=== PATIENT | female | born 1990 | race Caucasian/White ===

== ENCOUNTER 2016-04-22 14:29 | Emergency (ER) | payer MEDICAID | END 2016-04-22 17:50 | disposition home or self-care (01) | DX: N93.9 Abnormal uterine and vaginal bleeding, unspecified (principal); R42 Dizziness and giddiness ==

== ENCOUNTER 2016-04-23 12:05 | Emergency (ER) | payer MEDICAID | END 2016-04-23 15:57 | disposition home or self-care (01) | DX: N93.9 Abnormal uterine and vaginal bleeding, unspecified (principal); Z79.3 Long term (current) use of hormonal contraceptives ==

== ENCOUNTER 2016-04-30 13:50 | Outpatient (CLI) | payer MEDICAID | END 2016-04-30 13:51 | disposition home or self-care (01) | DX: M53.3 Sacrococcygeal disorders, not elsewhere classified (principal) ==

== ENCOUNTER 2016-06-02 14:49 | Emergency (ER) | payer MEDICAID ==
[2016-06-02] MEDS ORDERED: IBUPROFEN 400 MG TABLET PO STA (15:01)
[2016-06-02] MEDS ORDERED: ACETAMINOPHEN 325 MG TABLET PO STA (15:01)
[2016-06-02] MEDS ORDERED: ACETAMINOPHEN 325 MG TABLET PO ONE ×2 (15:04→15:06)
[2016-06-02] MEDS ORDERED: IBUPROFEN 400 MG TABLET PO ONE (15:04)
== END 2016-06-02 15:49 | disposition home or self-care (01) ==
DX: J02.9 Acute pharyngitis, unspecified (principal); R03.0 Elevated blood-pressure reading, without diagnosis of hypertension; M19.90 Unspecified osteoarthritis, unspecified site
CPT/HCPCS: 87070; 87430; 99283; A9270

== ENCOUNTER 2016-08-12 02:09 | Emergency (ER) | payer MEDICAID | END 2016-08-12 14:00 | disposition home or self-care (01) | DX: Z63.0 Problems in relationship with spouse or partner (principal); E78.00 Pure hypercholesterolemia, unspecified ==

== ENCOUNTER 2016-09-29 19:59 | Emergency (ER) | payer MEDICAID ==
[2016-09-29 20:07] VITALS: BP 131/81
[2016-09-29] MEDS ORDERED: HYDROcod/ACET 5/325 Prepack 6 PO STA (20:28)
[2016-09-29] MEDS ORDERED: CLINDAMYCIN 150 MG CAPSULE PO STA (20:28)
[2016-09-29] MEDS ORDERED: CLINDAMYCIN 150 MG CAPSULE PO ONE (20:30)
[2016-09-29] MEDS ORDERED: HYDROcod/ACET 5/325 Prepack 6 PO ONE (20:31)
--- NOTE | 2016-09-29 20:32 | ED Physician Documentation ---
History of Present Illness - Stated complaint Stated Complaint: COMER/JAW PX - Chief complaint Chief Complaint: General - History obtained from History obtained from: Patient, Family - History of Present Illness Timing: Other (One week of increasing dental pain and right-sided facial pain as well as bilateral ear pain. 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: None : None HEENT: None Psych: None Musculoskeletal: Osteoarthritis Derm: None - Past Surgical History Past Surgical History: No - Present Medications Home Medications: Ambulatory Orders Medication Instructions Recorded Confirmed Control Pills 12/10/14 12/10/14 Benzonatate [Tessalon] 100 mg PO TID PRN #20 capsule 12/04/15 Ibuprofen [Motrin] 400 mg PO Q6H PRN #20 tablet 12/04/15 Norgestrel-Ethinyl Estradiol 1 each PO TID #1 pkt 04/23/16 [Norg-Ethin Estr 0.5-0.05 mg Tb] Clindamycin [Cleocin] 300 mg PO Q6H 10 Days 09/29/16 HYDROcod/ACETAM 5/325 [[place] 5/325] 1 - 2 ea PO Q6H PRN #15 tablet 09/29/16 - Allergies Allergies/Adverse Reactions: Allergies Allergy/AdvReac Type Severity Reaction Status Date / Time Penicillins AdvReac Intermediate Hives Verified 09/29/16 20:07 Dairy Allergy Unknown Uncoded 12/04/15 12:52 - Social History Does the pt smoke?: No Smoking Status: Never smoker Does the pt drink ETOH?: No Does the pt have substance abuse?: No - Immunizations Immunizations are current?: No Immunizations: No immun - POLST Patient has POLST: No PD ED PE NORMAL - Vitals Vital signs reviewed: Yes - General General: Alert and oriented X 3, No acute distress - HEENT HEENT: PERRL, EOMI, Other (Left ear appears normal. The right TM appears to have a chronic appearing perforation with otitis media that is active. Behind the last molar on the right jaw there is a tender area without swelling, trismus , facial swelling.). No: Ears normal - Neck Neck: Supple, no meningeal sign, No bony TTP - Neuro Neuro: Alert and oriented X 3, Normal speech - Psych Psych: Normal mood, Normal affect Results - Vitals Vitals: Vital Signs - 24 hr 09/29/16 20:03 Temperature 36.9 C Heart Rate 79 Respiratory 16 Rate Blood Pressure 131/81 H O2 Saturation 100 Oxygen O2 Source Room air PD MEDICAL DECISION MAKING - ED course ED course: The [employer] prescription monitoring program was queried with regard to this patient. No concerning findings were found. Departure - Departure Disposition: Home, Self Care Clinical Impression: Pain, dental Otitis media, chronic with perforation Qualifiers: Laterality: right Qualified Code(s): H66.91 - Otitis media, unspecified, right ear Condition: Good Record reviewed to determine appropriate education?: Yes Instructions: ED Tooth Pain, ED Rupture Eardrum Infec Prescriptions: Clindamycin [Cleocin] 300 mg PO Q6H 10 Days HYDROcod/ACETAM 5/325 [[place] 5/325] 1 - 2 ea PO Q6H PRN #15 tablet PRN Reason: Pain Comments: It is very important that you follow up with a dentist. When it comes to dental problems like yours the emergency department can only offer you a short-term solution to your long-term problem. A couple of options for low-cost dental care include: [facility] in [place] call [phone] for an appointment Or [facility] in [place], call [phone] for an appointment Regarding the right TM perforation you should also follow up with an ear nose and throat physician, the closest to you is in [place], call [phone] to schedule an appointment.
== END 2016-09-29 20:35 | disposition home or self-care (01) ==
LOC: ED 19:59
DX: K08.89 Other specified disorders of teeth and supporting structures (principal); H66.91 Otitis media, unspecified, right ear; H72.91 Unspecified perforation of tympanic membrane, right ear; E78.00 Pure hypercholesterolemia, unspecified; M19.90 Unspecified osteoarthritis, unspecified site
CPT/HCPCS: 99283; A9270

== ENCOUNTER 2016-10-28 21:36 | Emergency (ER) | payer MEDICAID ==
[2016-10-28 21:53] LABS: BILIRUBIN,URINE NEGATIVE (NEGATIVE)
[2016-10-28 21:57] LABS: HCG UR QUAL NEGATIVE; UA w/ MICROSCOPIC CHARGE YES
[2016-10-28 22:21] LABS: UR CULTURE IF IND NOT INDICATED
[2016-10-28] MEDS ORDERED: IBUPROFEN 800 MG TABLET PO STA (22:25)
[2016-10-28] MEDS ORDERED: CYCLOBENZAPRINE 10 MG TABLET PO STA (22:25)
--- NOTE | 2016-10-28 22:31 | ED Physician Documentation ---
History of Present Illness - Stated complaint Stated Complaint: HIP/BACK PAIN - Chief complaint Chief Complaint: Trauma Ch/Bk - History obtained from History obtained from: Patient, Family - Additonal information Additional information: Patient is a 26-year-old female who presents with a complaint of low back pain and strain. She says she fell on Thursday and from that time to the present she has been sore in the lower back sacral area. She is walking without any difficulty the pain radiates bilaterally into both hips. She has no weakness in the legs and no perineal anesthesia. She denies any fever or chills she denies any other injury there is no nausea vomiting constipation, or diarrhea. Review of systems: For pertinent positive and negatives in the review of systems please see history of present illness. Otherwise all other systems have been reviewed and are negative. Dragon disclaimer: Parts of this medical record were created using voice recognition technology. Because of the inherent limitations of this system occasional same sounding word substitutions do occur and persist despite proofreading. Please read the document for context. Review of Systems GI: reports: Abdominal Pain. 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: None : None HEENT: None Psych: None Musculoskeletal: Osteoarthritis Derm: None - Past Surgical History Past Surgical History: No - Present Medications Home Medications: Ambulatory Orders Medication Instructions Recorded Confirmed Control Pills 12/10/14 12/10/14 Benzonatate [Tessalon] 100 mg PO TID PRN #20 capsule 12/04/15 Ibuprofen [Motrin] 400 mg PO Q6H PRN #20 tablet 12/04/15 Norgestrel-Ethinyl Estradiol 1 each PO TID #1 pkt 04/23/16 [Norg-Ethin Estr 0.5-0.05 mg Tb] Clindamycin [Cleocin] 300 mg PO Q6H 10 Days 09/29/16 HYDROcod/ACETAM 5/325 [[place] 5/325] 1 - 2 ea PO Q6H PRN #15 tablet 09/29/16 Cyclobenzaprine [Flexeril] 10 mg PO TID PRN #14 tablet 10/28/16 Diclofenac Sodium 50 mg PO BID PRN #14 tablet. 10/28/16 - Allergies Allergies/Adverse Reactions: Allergies Allergy/AdvReac Type Severity Reaction Status Date / Time Penicillins AdvReac Intermediate Hives Verified 10/28/16 21:39 Dairy Allergy Unknown Uncoded 10/28/16 21:39 - Social History Does the pt smoke?: No Smoking Status: Never smoker Does the pt drink ETOH?: No Does the pt have substance abuse?: No - Immunizations Immunizations are current?: No Immunizations: No immun - POLST Patient has POLST: No PD ED PE NORMAL - General General: Alert and oriented X 3, No acute distress, Well developed/nourished - HEENT HEENT: Atraumatic - Neck Neck: Supple, no meningeal sign, No bony TTP - Back Back: No spinal TTP, Other - Derm Derm: Normal color - Neuro Neuro: No motor deficit, No sensory deficit Results - Vitals Vitals: Vital Signs - 24 hr 10/28/16 21:39 Temperature 36.8 C Heart Rate 99 Respiratory 16 Rate Blood Pressure 115/74 O2 Saturation 100 Oxygen O2 Source Room air - Labs Labs: Laboratory Tests 10/28/16 21:47 Urine Color LT. YELLOW Urine Clarity HAZY Urine pH 6.0 Ur Specific Pauline <=1.005 Urine Protein NEGATIVE Urine Glucose (UA) NEGATIVE Urine Ketones NEGATIVE Urine Occult Blood SMALL H Urine Nitrite NEGATIVE Urine Bilirubin NEGATIVE Urine Urobilinogen 0.2 (NORMAL) Ur Leukocyte Esterase MODERATE H Urine RBC 0-5 Urine WBC 4-5 Ur Squamous Epith Cells MOD Squamous H Urine Bacteria Few Ur Microscopic Review INDICATED Urine Culture Comments NOT INDICATED Urine HCG, Qual NEGATIVE PD MEDICAL DECISION MAKING - ED course ED course: Patient is a young healthy female with a history of falling a few days ago with a fairly benign exam and benign history. I am a little concerned about her visit frequency in regards to pain related complaints. The patient will be given a nonsteroidal anti-inflammatory, Flexeril and I will have her follow-up with her primary care physician. Disposition: To home Clinical impression: 1. Lumbar strain Departure - Departure Disposition: 01 Home, Self Care Clinical Impression: Strain of lumbar paraspinous muscle Qualifiers: Encounter type: initial encounter Qualified Code(s): S39.012A - Strain of muscle, fascia and tendon of lower back, initial encounter Condition: Good Instructions: ED Sprain Strain Lumbar Follow-Up: Ct Rocha ARNP [Primary Care Provider] - Prescriptions: Diclofenac Sodium 50 mg PO BID PRN #14 tablet. PRN Reason: Pain Cyclobenzaprine [Flexeril] 10 mg PO TID PRN #14 tablet PRN Reason: Spasms
[2016-10-28] MEDS ORDERED: CYCLOBENZAPRINE 10 MG TABLET PO ONE (22:32)
[2016-10-28] MEDS ORDERED: IBUPROFEN 800 MG TABLET PO ONE (22:33)
[2016-10-28 22:48] VITALS: BP 101/73
== END 2016-10-28 22:44 | disposition home or self-care (01) ==
LOC: ED 21:36
DX: S39.012A Strain of muscle, fascia and tendon of lower back, initial encounter (principal); W18.30XA Fall on same level, unspecified, initial encounter; Y93.E1 Activity, personal bathing and showering
CPT/HCPCS: 81001; 81025; 99283; A9270; 81003; 87086

== ENCOUNTER 2016-12-24 17:44 | Emergency (ER) | payer MEDICAID ==
--- NOTE | 2016-12-24 20:06 | ED Physician Documentation ---
History of Present Illness - Stated complaint Stated Complaint: ABSCESS IN MOUTH - Chief complaint Chief Complaint: Heent - Additonal information Additional information: hx from pt 26 y/o f to ER for right lower dental pain which is recurrent, bad again now rad to ear her dentist is in [place] and she has not seen him/her for this denies preg Review of Systems Constitutional: denies: Fever, Chills Ears: reports: Ear pain Throat: reports: Dental pain / toothache : denies: Now EGA PD PAST MEDICAL HISTORY - Past Medical History Past Medical History: No Cardiovascular: High cholesterol Respiratory: None Neuro: None Endocrine/Autoimmune: None GI: None 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 : None HEENT: None Psych: None Musculoskeletal: Osteoarthritis Derm: None - Past Surgical History Past Surgical History: No - Present Medications Home Medications: Ambulatory Orders Medication Instructions Recorded Confirmed Clindamycin [Cleocin] 300 mg PO Q6H 7 Days 12/24/16 - Allergies Allergies/Adverse Reactions: Allergies Allergy/AdvReac Type Severity Reaction Status Date / Time Penicillins AdvReac Intermediate Hives Verified 12/24/16 19:39 Dairy Allergy Unknown Uncoded 12/24/16 19:39 - Social History Does the pt smoke?: No Smoking Status: Never smoker Does the pt drink ETOH?: No Does the pt have substance abuse?: No - Immunizations Immunizations are current?: No Immunizations: No immun - POLST Patient has POLST: No PD ED PE NORMAL - Vitals Vital signs reviewed: Yes - General General: Alert and oriented X 3 - HEENT HEENT: PERRL, Ears normal, Moist mucous membranes, Other (teeth seem in goot condition, no trismus, some tenderness without flutuance to gum behind last molar, no erupting tooth seen) - Neck Neck: Supple, no meningeal sign - Cardiac Cardiac: RRR - Respiratory Respiratory: Clear bilaterally Results - Vitals Vitals: Vital Signs - 24 hr 12/24/16 18:05 Temperature 36.4 C L Heart Rate 96 Respiratory 16 Rate Blood Pressure 133/84 H O2 Saturation 100 Oxygen O2 Source Room air PD MEDICAL DECISION MAKING - ED course ED course: dental pain with tenderness behind left molar, pt states this a recurrent abscess, do not see superficial abscess to drain, to states usually clear for a whole with ab so will rx same, but emphasized to pt that she really needs to see a dentist Departure - Departure Disposition: Home, Self Care Clinical Impression: Pain, dental Condition: Good Instructions: ED Tooth Pain Follow-Up: Ct Rocha ARNP [Primary Care Provider] - Prescriptions: Clindamycin [Cleocin] 300 mg PO Q6H 7 Days Comments: Taking antibiotic over and over again is not a good idea - you really need to go see your dentist even if it is in [place] Tylenol and motrin for the pain Please follow up with your PMD to get your blood pressure rechecked
[2016-12-24 20:19] VITALS: BP 107/74
== END 2016-12-24 20:19 | disposition home or self-care (01) ==
LOC: ED 17:44
DX: K04.7 Periapical abscess without sinus (principal); K08.89 Other specified disorders of teeth and supporting structures
CPT/HCPCS: 99283

== ENCOUNTER 2017-04-30 08:00 | Outpatient (CLI) | payer MEDICAID | END 2017-04-30 23:59 | disposition home or self-care (01) | LOC: LAB.R 08:00 | PROVIDERS: ATTEND Obstetrics & Gynecology | DX: Z11.3 Encounter for screening for infections with a predominantly sexual mode of transmission (principal) | CPT/HCPCS: 87491; 87591 ==

== ENCOUNTER 2017-05-20 10:20 | Outpatient (CLI) | payer MEDICAID | END 2017-05-20 10:21 | disposition home or self-care (01) | LOC: LAB.F 10:20 | PROVIDERS: ATTEND Obstetrics & Gynecology | DX: Z36.9 Encounter for antenatal screening, unspecified (principal); D69.3 Immune thrombocytopenic purpura ==

== ENCOUNTER 2017-05-21 13:16 | Outpatient (CLI) | payer MEDICAID ==
[2017-05-21 13:48] LABS: BASOPHILS # (AUTO) 0.1 10^3/uL (0.0-0.1); BASOPHILS % (AUTO) 0.7 %; EOSINOPHILS # (AUTO) 0.1 10^3/uL (0.0-0.7); EOSINOPHILS % (AUTO) 1.3 %; LYMPHOCYTES # (AUTO) 1.7 10^3/uL (1.5-3.5); LYMPHOCYTES % (AUTO) 18.3 %; MEAN CORPUSCULAR HEMOGLOBIN 32.7 pg (27.0-31.0); MEAN CORPUSCULAR HGB CONC 35.9 g/dL (32.0-36.0); MEAN CORPUSCULAR VOLUME 91.1 fL (81.0-99.0); MEAN PLATELET VOLUME 7.8 fL (7.9-10.8); MONOCYTES # (AUTO) 0.7 10^3/uL (0.0-1.0); MONOCYTES % (AUTO) 7.4 %; NEUTROPHILS # (AUTO) 6.9 10^3/uL (1.5-6.6); NEUTROPHILS % (AUTO) 72.3 %; PLT - PLATELET COUNT 228 10^3/uL (130-450); RED BLOOD COUNT 3.38 10^6/uL (4.20-5.40); WHITE BLOOD COUNT 9.5 x10^3/uL (4.8-10.8)
[2017-05-21 13:49] LABS: BILIRUBIN,URINE NEGATIVE (NEGATIVE); GLUCOSE, URINE (UA) NEGATIVE (NEGATIVE); KETONES,URINE (UA) NEGATIVE (NEGATIVE); LEUKOCYTE ESTERASE, URINE NEGATIVE (NEGATIVE); NITRITE,URINE NEGATIVE (NEGATIVE); OCCULT BLOOD,URINE NEGATIVE (NEGATIVE); PROTEIN,URINE NEGATIVE (NEGATIVE); UROBILINOGEN,URINE 0.2 (NORMAL) E.U./dL (NORMAL)
[2017-05-21 13:50] LABS: CLARITY,URINE CLEAR (CLEAR)
[2017-05-21 14:02] LABS: BACTERIA,URINE Rare /HPF (None Seen); RBC,URINE None Seen /HPF (0-5); SQUAMOUS EPITHELIAL CELL,UR FEW Squamous (<= Few)
[2017-05-22 08:47] LABS: HEPATITIS B SURFACE ANTIGEN NON-REACTIVE (NON-REACTIVE)
[2017-05-22 14:06] LABS: HIV AG/AB 4TH GEN NON-REACTIVE (NON-REACTIVE)
== END 2017-05-21 13:17 | disposition home or self-care (01) ==
LOC: LAB 13:16
PROVIDERS: ATTEND Obstetrics & Gynecology
DX: Z36.9 Encounter for antenatal screening, unspecified (principal); D69.3 Immune thrombocytopenic purpura
CPT/HCPCS: 36415; 81001; 81599; 82105; 82677; 84702; 85025; 86336; 86592; 86762; 86850; 86900; 86901; 87340; 87389

== ENCOUNTER 2017-05-29 12:27 | Outpatient (CLI) | payer MEDICAID ==
--- NOTE | 2017-06-01 10:43 | Ultrasound Report ---
OB ULTRASOUND: 05/29/2017 CLINICAL INDICATION: anatomy. TECHNIQUE: Real-time scanning was performed with traveling sales representative static images obtained. LAST MENSTRUAL PERIOD 01/11/2017 CLINICAL AGE 19 weeks 5 days US AGE 19 weeks 6 days EFW HADLOCK 313 grams EFW% HADLOCK 50% HEART RATE 142 bpm EDC 10/18/2017 US EDC 10/17/2017 BPD HADLOCK 20 weeks 1 day; Mean mm 47 HC HADLOCK 19 weeks 5 days; Mean mm 171 AC HADLOCK 20 weeks days; Mean mm 152 FL HADLOCK 19 weeks 1 day; Mean mm 30 PRESENTATION cephalic PLACENTAL LOCATION posterior CERVICAL LENGTH TA 3.0 cm AMNIOTIC FLUID subjectively normal. FINDINGS There is a single viable intrauterine gestation, in cephalic presentation. heart rate is 142 BPM. The placenta is posterior, without evidence of previa. Amniotic fluid volume is subjectively normal. By size, the fetus measures 19 weeks 6 days (19 weeks 5 days per order). The following anatomic structures were visualized and appear normal: The intracranial contents, including the ventricles and posterior fossa; the lips and orbits; the spine; the heart, including 4 chamber view and outflow tracts, and diaphragm; the abdominal contents, including the stomach, the bilateral kidneys, and urinary bladder, as well as a normal 3-vessel cord insertion; 4 limbs. No free fluid or adnexal lesion is appreciated. IMPRESSION: SINGLE VIABLE INTRAUTERINE GESTATION, WITH SIZE IN KEEPING WITH GIVEN DATING. NORMAL ANATOMIC SURVEY. TD: 05/29/2017 16:13 [facility]
== END 2017-05-29 12:28 | disposition home or self-care (01) ==
LOC: DI 12:27
PROVIDERS: ATTEND Obstetrics & Gynecology
DX: Z36.9 Encounter for antenatal screening, unspecified (principal)
CPT/HCPCS: 76811

== ENCOUNTER 2017-07-24 12:06 | Outpatient (CLI) | payer MEDICAID ==
[2017-07-24 13:38] LABS: HGB - HEMOGLOBIN 11.6 g/dL (12.0-16.0); MEAN CORPUSCULAR HEMOGLOBIN 33.1 pg (27.0-31.0); MEAN CORPUSCULAR HGB CONC 34.6 g/dL (32.0-36.0); MEAN CORPUSCULAR VOLUME 95.6 fL (81.0-99.0); MEAN PLATELET VOLUME 7.9 fL (7.9-10.8); RED BLOOD COUNT 3.51 10^6/uL (4.20-5.40); WHITE BLOOD COUNT 8.1 x10^3/uL (4.8-10.8)
== END 2017-07-24 12:07 | disposition home or self-care (01) ==
LOC: LAB 12:06
PROVIDERS: ATTEND Obstetrics & Gynecology
DX: Z34.90 Encounter for supervision of normal pregnancy, unspecified, unspecified trimester (principal)
CPT/HCPCS: 36415; 82950; 86850

== ENCOUNTER 2017-09-22 14:09 | Outpatient (CLI) | payer MEDICAID | END 2017-09-22 14:10 | disposition home or self-care (01) | LOC: LAB.R 14:09 | PROVIDERS: ATTEND Obstetrics & Gynecology | DX: Z36.89 Encounter for other specified antenatal screening (principal) | CPT/HCPCS: 87081; 87181 ==

== ENCOUNTER 2017-09-25 10:31 | Outpatient (CLI) | payer MEDICAID ==
[2017-09-25 10:49] LABS: BASOPHILS # (AUTO) 0.1 10^3/uL (0.0-0.1); BASOPHILS % (AUTO) 0.7 %; EOSINOPHILS % (AUTO) 0.6 %; HGB - HEMOGLOBIN 12.6 g/dL (12.0-16.0); LYMPHOCYTES # (AUTO) 1.6 10^3/uL (1.5-3.5); MEAN CORPUSCULAR HEMOGLOBIN 33.6 pg (27.0-31.0); MEAN CORPUSCULAR HGB CONC 34.3 g/dL (32.0-36.0); MEAN CORPUSCULAR VOLUME 97.9 fL (81.0-99.0); MONOCYTES # (AUTO) 0.8 10^3/uL (0.0-1.0); MONOCYTES % (AUTO) 9.7 %; NEUTROPHILS # (AUTO) 5.4 10^3/uL (1.5-6.6); PLT - PLATELET COUNT 153 10^3/uL (130-450); RED BLOOD COUNT 3.77 10^6/uL (4.20-5.40); RED CELL DISTRIBUTION WIDTH 13.2 % (12.0-15.0); WHITE BLOOD COUNT 7.9 x10^3/uL (4.8-10.8)
== END 2017-09-25 10:32 | disposition home or self-care (01) ==
LOC: LAB 10:31
PROVIDERS: ATTEND Obstetrics & Gynecology
DX: D64.9 Anemia, unspecified (principal)
CPT/HCPCS: 36415; 85025

== ENCOUNTER 2017-09-28 14:14 | Inpatient (IN) | payer MEDICAID ==
[2017-09-28 15:01] LABS: RUPTURE OF MEMBRANES PLUS POSITIVE (NEGATIVE)
[2017-09-28] MEDS ORDERED: SODIUM CHLORIDE FLUSH 0.9% 10 ML SYRINGE IVP PRN (16:09)
[2017-09-28] MEDS ORDERED: ceFAZolin 2 GM/50 ML 2 GM/50 ML BAG IV ONE (16:09)
[2017-09-28 16:44] LABS: BASOPHILS # (AUTO) 0.1 10^3/uL (0.0-0.1); BASOPHILS % (AUTO) 0.9 %; EOSINOPHILS % (AUTO) 0.4 %; HGB - HEMOGLOBIN 12.2 g/dL (12.0-16.0); LYMPHOCYTES % (AUTO) 22.3 %; MEAN CORPUSCULAR HEMOGLOBIN 33.7 pg (27.0-31.0); MEAN CORPUSCULAR HGB CONC 34.7 g/dL (32.0-36.0); MEAN CORPUSCULAR VOLUME 97.1 fL (81.0-99.0); MONOCYTES # (AUTO) 0.9 10^3/uL (0.0-1.0); MONOCYTES % (AUTO) 10.4 %; NEUTROPHILS # (AUTO) 5.9 10^3/uL (1.5-6.6); PLT - PLATELET COUNT 175 10^3/uL (130-450); RED BLOOD COUNT 3.62 10^6/uL (4.20-5.40); RED CELL DISTRIBUTION WIDTH 13.3 % (12.0-15.0); WHITE BLOOD COUNT 8.9 x10^3/uL (4.8-10.8)
[2017-09-28] MEDS ORDERED: SODIUM CHLORIDE FLUSH 0.9% 10 ML SYRINGE IVP SCH (17:00)
[2017-09-28] MEDS ORDERED: OXYTOCIN/SODIUM CHLORIDE 500 ML IV SCH (17:00)
[2017-09-28] MEDS ORDERED: LACTATED RINGERS 1,000 ML IV SCH (17:00)
--- NOTE | 2017-09-28 17:33 | HISTORY & PHYSICAL EXAMINATION ---
Chief Complaint - Chief Complaint Chief Complaint: LEAKAGE OF FLUID History of Present Illness - Admitted From Admitted From:: HOME TO [facility] - History Obtained From Records Reviewed: YES History obtained from: PATIENT Exam Limitations: NONE - History of Present Illness HPI Comment/Other: 27 y.o. EDC 10/18/17 based on LMP and 15 wk US that agrees, 37 1/7 weeks today at admission from home with c/o of SROM clear at home at 1330 hours today and irregular uterine contractions. ROM+ test at hospital confirms ROM. Noted to have category 1 tracing on admission with moderate 6/10 intensity contractions q2-6 min. apart, Cx exam at 1530 hours 2/70/-1/VTX with palpable forebag. Patient is GBS+ allergic to PCN (rash/hives) and Clindamycin (SOB, facial welts), also allergic to dairy products. PNC: Anemia. Also, noted to have 2x1 cm mobile, tender left breast lump at OB visit on 09/22/17 with recommendations for f/u . OB HX: x 1 at 39 weeks, 2,721 GMS. Had gestational thrombocytopenia with that and possible anemia. Per patient, she was transfused blood prior to delivery and again ppd #1 due to anemia and bleeding. PMH: Neg PSH: Clutier Teeth Meds: PNV, Fe SHx: Negative for smoking/ETOH/Drugs Allergies: PCN (rash/hives) Clindamycin (SOB/Welts on face) in Dec 2016 at [facility] ED for possible tooth abscess. Subsequently took Keflex without incident. 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 Gestational Thrombocytopenia - Past Surgical History Other past surgical history: Clutier Teeth - Family & Social History Social History Notes: NEGATIVE FOR SMOKING/ETOH/DRUGS - Substance History Use: Uses substance without health or social issues: NONE - POLST Patient has POLST: No POLST Status: Full Code Meds/Allgy - Allergies Allergies/Adverse Reactions: Allergies Allergy/AdvReac Type Severity Reaction Status Date / Time clindamycin Allergy Hives Verified 09/28/17 16:32 Penicillins AdvReac Intermediate Hives Verified 12/24/16 19:39 Dairy Allergy Unknown Uncoded 12/24/16 19:39 Review of Systems - All Other Systems All Other Systems: reports: Reviewed and negative (ROS NEGATIVE FOR ALL 14 SYSTEMS, EXCEPT FOR SROM AND CONTRACTIONS) Exam - Vital Signs Vital Signs: Vital Signs x48h Temp Pulse Resp BP Pulse Ox 09/28/17 14:36 37.0 C 95 20 132/82 H 98 - Physical Exam General Appearance: positive: No acute distress, Alert, Mild distress Eyes Bilateral: positive: Normal inspection ENT: positive: ENT inspection nml Neck: positive: Nml inspection Respiratory: positive: Chest non-tender, No respiratory distress, Breath sounds nml Cardiovascular: positive: Regular rate & rhythm Peripheral Pulses: positive: 2+ Abdomen: positive: Non-tender, No organomegaly Back: positive: Nml inspection Skin: positive: Color nml, No rash, Warm Extremities: positive: Non-tender, Full ROM, Nml appearance (CERVICAL EXAM AT 1530: 2/70/-1/VTX WITH + FOREBAG CATEGORY 1 FHR TRACING WITH MOD CONTRACTIONS Q2 -6 MIN SPONTANEOUSLY) Conclusion/Plan - Lab Results Fish Bones: 09/28/17 16:40 Core Measures - Anticipated LOS I expect patient to be DC'd or transferred within 96 hours.: Yes - Issues Hospital Issues and Management Plan: IMPRESSION/PLAN: # 27 y.o. 37 1/7 weeks with SROM clear at 1330 hours in early spontaneous labor, prios at 39 weeks. # GBS+, will Rx in labor with Ancef given allergy hx with PCN and clindamycins, has taken Keflex in past without incident. # Hx Hemorrhage with last delivery and transfusion predelivery (due to gestational thrombocytopenia) and ppd #1 due to delayed pph and anemia. Type and Cross x 2 units this admission # Pitocin augmentation as needed after period of time has elapsed from administration of GBS prophylaxis ABX. - DVT/VTE - Prophylaxis VTE/DVT Device ordered at admit?: No Not Ordered - Low Risk: Low Risk
--- NOTE | 2017-09-28 18:55 | PROVIDER PROGRESS NOTE ---
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 First dose of Ancef at 1700 hours. Patient requesting IV analgesia. Will Rx with fentanyl. See orders. Objective - Vital Signs/Intake & Output Vital Signs: Vital Signs x48h Temp Pulse Resp BP Pulse Ox 09/28/17 14:36 37.0 C 95 20 132/82 H 98 Intake & Output: Intake & Output 09/25/17 09/26/17 09/27/17 09/28/17 23:59 23:59 23:59 23:59 Intake Total 550 Output Total 1000 Balance -450 - Lab Results Fish Bones: 09/28/17 16:40 Other Labs: Lab Results x24hrs 09/28/17 09/28/17 09/28/17 Range/Units 16:40 16:40 14:30 WBC 8.9 (4.8-10.8) x10^3/uL RBC 3.62 L (4.20-5.40) 10^6/uL Hgb 12.2 (12.0-16.0) g/dL Hct 35.2 L (37.0-47.0) % MCV 97.1 (81.0-99.0) fL MCH 33.7 H (27.0-31.0) pg MCHC 34.7 (32.0-36.0) g/dL RDW 13.3 (12.0-15.0) % Plt Count 175 (130-450) 10^3/uL MPV 9.0 (7.9-10.8) fL Neut # (Auto) 5.9 (1.5-6.6) 10^3/uL Lymph # (Auto) 2.0 (1.5-3.5) 10^3/uL [place] # (Auto) 0.9 (0.0-1.0) 10^3/uL Eos # (Auto) 0.0 (0.0-0.7) 10^3/uL Baso # (Auto) 0.1 (0.0-0.1) 10^3/uL Absolute Nucleated RBC 0.00 x10^3/uL Nucleated RBC % 0.0 /100WBC Membranes Rupture POSITIVE A (NEGATIVE) Blood Type O POSITIVE Antibody Screen NEGATIVE Crossmatch IS Only See Detail
[2017-09-28] MEDS: fentaNYL 100 MCG/2 ML VIAL IVP PRN ×2 (18:57→21:04)
[2017-09-28] MEDS ORDERED: LIDOCAINE 1% 50 ML MDV ONE (20:18)
[2017-09-28] MEDS ORDERED: OXYTOCIN/SODIUM CHLORIDE 500 ML IV ONE (20:19)
--- NOTE | 2017-09-28 21:02 | PROVIDER PROGRESS NOTE ---
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 Category 1 tracing. Cx 5/60/-2/VTX with forebag as previously noted. Forebag ruptured with amnio hook and clear AF noted. Patient requesting epidural , ANS notified for same. IV bolus started. Fentanyl 50 micrograms IV during interim at patient request. Objective - Vital Signs/Intake & Output Vital Signs: Vital Signs x48h Temp Pulse Resp BP Pulse Ox 09/28/17 14:36 37.0 C 95 20 132/82 H 98 Intake & Output: Intake & Output 09/25/17 09/26/17 09/27/17 09/28/17 23:59 23:59 23:59 23:59 Intake Total 550 Output Total 1300 Balance -750 - Lab Results Fish Bones: 09/28/17 16:40 Other Labs: Lab Results x24hrs 09/28/17 09/28/17 09/28/17 Range/Units 16:40 16:40 14:30 WBC 8.9 (4.8-10.8) x10^3/uL RBC 3.62 L (4.20-5.40) 10^6/uL Hgb 12.2 (12.0-16.0) g/dL Hct 35.2 L (37.0-47.0) % MCV 97.1 (81.0-99.0) fL MCH 33.7 H (27.0-31.0) pg MCHC 34.7 (32.0-36.0) g/dL RDW 13.3 (12.0-15.0) % Plt Count 175 (130-450) 10^3/uL MPV 9.0 (7.9-10.8) fL Neut # (Auto) 5.9 (1.5-6.6) 10^3/uL Lymph # (Auto) 2.0 (1.5-3.5) 10^3/uL [place] # (Auto) 0.9 (0.0-1.0) 10^3/uL Eos # (Auto) 0.0 (0.0-0.7) 10^3/uL Baso # (Auto) 0.1 (0.0-0.1) 10^3/uL Absolute Nucleated RBC 0.00 x10^3/uL Nucleated RBC % 0.0 /100WBC Membranes Rupture POSITIVE A (NEGATIVE) Blood Type O POSITIVE Antibody Screen NEGATIVE Crossmatch IS Only See Detail
[2017-09-28] MEDS ORDERED: fent/BUPIV 2 MCG/0.125% 250 ML EP ONE (21:11)
[2017-09-28] MEDS ORDERED: diphenhydrAMINE INJ 50 MG/ML VIAL IVP PRN (22:15)
[2017-09-28] MEDS ORDERED: ePHEDrine 50 MG/ML VIAL IVP PRN (22:15)
[2017-09-28] MEDS ORDERED: ONDANSETRON 4 MG/2 ML VIAL IVP PRN (22:15)
[2017-09-28] MEDS ORDERED: LACTATED RINGERS 500 ML IV ONE (22:15)
[2017-09-28] MEDS ORDERED: NALOXONE 0.4 MG/ML VIAL IVP PRN (22:15)
[2017-09-28] MEDS ORDERED: fent/BUPIV 2 MCG/0.125% 250 ML EP PRN (22:15)
[2017-09-28] MEDS ORDERED: NALBUPHINE 10 MG/ML AMP IVP PRN (22:15)
[2017-09-28] MEDS ORDERED: METOCLOPRAMIDE 10 MG/2 ML VIAL IVP PRN (22:15)
--- NOTE | 2017-09-28 22:48 | PROVIDER PROGRESS NOTE ---
Subjective - Prog Note Date Prog Note Date: 09/28/17 Prog Note Time: 22:45 - Subjective Subjective: HEAD CASHIER: Epidural in. Patient laboring comfortably in bed. Contractions q2-5 min. Category 1 tracing. Cx 6/90/-2 with irregular contractions. Will start low dose pitocin augmentation to maintain labor curve. [place] now. Objective - Vital Signs/Intake & Output Intake & Output: Intake & Output 09/25/17 09/26/17 09/27/17 09/28/17 23:59 23:59 23:59 23:59 Intake Total 550 Output Total 1300 Balance -750 - Lab Results Fish Bones: 09/28/17 16:40 Other Labs: Lab Results x24hrs 09/28/17 09/28/17 09/28/17 Range/Units 16:40 16:40 14:30 WBC 8.9 (4.8-10.8) x10^3/uL RBC 3.62 L (4.20-5.40) 10^6/uL Hgb 12.2 (12.0-16.0) g/dL Hct 35.2 L (37.0-47.0) % MCV 97.1 (81.0-99.0) fL MCH 33.7 H (27.0-31.0) pg MCHC 34.7 (32.0-36.0) g/dL RDW 13.3 (12.0-15.0) % Plt Count 175 (130-450) 10^3/uL MPV 9.0 (7.9-10.8) fL Neut # (Auto) 5.9 (1.5-6.6) 10^3/uL Lymph # (Auto) 2.0 (1.5-3.5) 10^3/uL [place] # (Auto) 0.9 (0.0-1.0) 10^3/uL Eos # (Auto) 0.0 (0.0-0.7) 10^3/uL Baso # (Auto) 0.1 (0.0-0.1) 10^3/uL Absolute Nucleated RBC 0.00 x10^3/uL Nucleated RBC % 0.0 /100WBC Membranes Rupture POSITIVE A (NEGATIVE) Blood Type O POSITIVE Antibody Screen NEGATIVE Crossmatch IS Only See Detail
[2017-09-28] MEDS: miSOPROStol 200 MCG TABLET ONE (23:05)
--- NOTE | 2017-09-29 | PROVIDER PROGRESS NOTE ---
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 Pit at 1 mIU and increasing to 2. Cx //-2. Continue pitocin augmentation. Objective - Vital Signs/Intake & Output Intake & Output: Intake & Output 09/25/17 09/26/17 09/27/17 09/28/17 23:59 23:59 23:59 23:59 Intake Total 550 Output Total 1300 Balance -750 - Lab Results Fish Bones: 09/28/17 16:40 Other Labs: Lab Results x24hrs 09/28/17 09/28/17 09/28/17 Range/Units 16:40 16:40 14:30 WBC 8.9 (4.8-10.8) x10^3/uL RBC 3.62 L (4.20-5.40) 10^6/uL Hgb 12.2 (12.0-16.0) g/dL Hct 35.2 L (37.0-47.0) % MCV 97.1 (81.0-99.0) fL MCH 33.7 H (27.0-31.0) pg MCHC 34.7 (32.0-36.0) g/dL RDW 13.3 (12.0-15.0) % Plt Count 175 (130-450) 10^3/uL MPV 9.0 (7.9-10.8) fL Neut # (Auto) 5.9 (1.5-6.6) 10^3/uL Lymph # (Auto) 2.0 (1.5-3.5) 10^3/uL [place] # (Auto) 0.9 (0.0-1.0) 10^3/uL Eos # (Auto) 0.0 (0.0-0.7) 10^3/uL Baso # (Auto) 0.1 (0.0-0.1) 10^3/uL Absolute Nucleated RBC 0.00 x10^3/uL Nucleated RBC % 0.0 /100WBC Membranes Rupture POSITIVE A (NEGATIVE) Blood Type O POSITIVE Antibody Screen NEGATIVE Crossmatch IS Only See Detail
[2017-09-29] MEDS ORDERED: ceFAZolin 1 GM in SODIUM CHLORIDE 0.9% MINIBAG 100 ML IV SCH (01:00)
[2017-09-29] MEDS ORDERED: OXYTOCIN 10 UNIT/ML VIAL ONE ×2 (01:03→03:15)
[2017-09-29] MEDS ORDERED: METHYLERGONOVINE 0.2 MG/ML AMP ONE (02:10)
[2017-09-29] MEDS ORDERED: MAGNESIUM HYDROXIDE 2,400 MG/30 ML UDC PO PRN (02:28)
[2017-09-29] MEDS ORDERED: OXYTOCIN/SODIUM CHLORIDE 250 ML IV ONE (02:28)
[2017-09-29] MEDS ORDERED: HYDROCORTISONE 1% CREAM 28 GM TUBE PR PRN (02:28)
[2017-09-29] MEDS ORDERED: HYDROCORTISONE/PRAMOXINE 10 GM PR PRN (02:28)
[2017-09-29] MEDS ORDERED: WITCH HAZEL/GLYCERIN 1 EACH MED..PAD TOP PRN (02:28)
--- NOTE | 2017-09-29 02:37 | DELIVERY NOTE ---
Delivery Note - Labor Labor: positive: Augmented by oxytocin - Delivery Method Delivery Method: positive: Spontaneous vaginal delivery - Presentation Presentation: positive: Vertex, JUDAH - right occiput anterior - Nuchal Cord Nuchal Cord: positive: None - Anesthetic Anesthetic Type: - Amniotic Fluid Description Amniotic Fluid Description: positive: Clear - Episiotomy Type Episiotomy Type: positive: None - Laceration Laceration: positive: None - Delivery Outcome Delivery Outcome: positive: Livebirth - : positive: Placed in direct skin contact with mother, Stimulated, [place] used sex: positive: Male - Cord Cord: positive: 3 vessels - Placenta Placenta: positive: Intact, Spontaneous - Estimated Blood Loss Estimated Blood Loss (in cc): 150 - Post Delivery Events Post Delivery Events: positive: No post delivery events - Delivery Comments (Free Text/Narrative) Delivery Comments (Free Text/Narrative): Trisha Villarreal is a 27 y/o who presented w/ c/o SROM @ 2130 on 09/28/2017. Her was complicated by oral abscess, bronchitis & GBS positive status. She received Ancef x2 doses prior to AROM of forebag & augmentation w/ IV Pitocin titrated to a maximum infusion rate of 4mU/min. She progressed to complete dilatation @ 0218, for a total first stage duration of 5 hours. She received epidural anesthesia for pain management & FHTs were monitored & were consistently category I. She pushed w/ spontaneous urge to of viable male in JUDAH position over an intact perineum @ 0220, for a total 2nd stage duration of 2 minutes. Infant vigorous w/ spontaneous, lusty cry. Placed to maternal abdomen for drying/stim. Apgars 9/9. 3rd stage actively managed w/ Pitocin in IV fluids. Delayed cord clamping until cessation of pulsation, then cord clamped x2 & cut by CNM. 3VC noted, cord blood obtained. Placenta delivered spontaneously & intact @ 0224, for a total 3rd stage duration of 4 minutes. Vagina & perineum inspected & found to be intact. FF @ U-1. EBL 150mL. Mother & infant stable. Planning to breastfeed & infant suckling @ breast w/in 20 minutes of delivery. weight pending.
[2017-09-29] MEDS: miSOPROStol 200 MCG TABLET ONE (03:08)
[2017-09-29] MEDS ORDERED: LACTATED RINGERS 1,000 ML IV ONE (03:15)
[2017-09-29] MEDS: IBUPROFEN 800 MG TABLET PO SCH ×3 (04:19→18:08)
[2017-09-29] MEDS: ACETAMINOPHEN 500 MG TABLET PO SCH ×2 (08:07→16:00)
[2017-09-29] MEDS: DOCUSATE SODIUM 100 MG CAPSULE PO SCH ×2 (08:07→21:33)
--- NOTE | 2017-09-29 09:14 | PROVIDER PROGRESS NOTE ---
Subjective - Prog Note Date Prog Note Date: 09/29/17 Prog Note Time: 09:00 - Subjective Pt reports feeling: Improved Subjective: Trisha is doing well. She reports minimal discomfort. She is ambulating & voiding w/o difficulty. She is passing flatus & tolerating a regular diet. She reports minimal lochia rubra. She has attempted to breastfeed but her infant has not yet latched & is requiring continuous respiratory support. She is hand-expressing colostrum for spoon-feeding. Objective - Vital Signs/Intake & Output Reviewed Vital Signs: Yes Vital Signs: Vital Signs x48h Temp Pulse Resp BP Pulse Ox 09/29/17 07:53 36.9 C 70 16 126/87 H 99 09/29/17 04:13 36.8 C 82 16 118/77 99 09/29/17 03:43 85 16 118/82 H 99 09/29/17 03:28 80 16 118/78 100 09/29/17 03:13 81 16 118/78 97 09/29/17 02:58 88 16 126/93 H 99 09/29/17 02:43 86 20 108/74 99 09/29/17 02:28 84 16 108/74 100 Intake & Output: Intake & Output 09/26/17 09/27/17 09/28/17 09/29/17 23:59 23:59 23:59 23:59 Intake Total 550 Output Total 1300 2250 Balance -750 -2250 - Objective General Appearance: positive: No acute distress, Alert Respiratory: positive: Chest non-tender, No respiratory distress, Breath sounds nml Cardiovascular: positive: Regular rate & rhythm, No murmur, No gallop Abdomen: positive: Non-tender, No distention, Other (FF U-1) Skin: positive: Color nml, No rash, Warm, Dry Extremities: positive: Non-tender, Full ROM, Nml appearance, No pedal edema. negative: Calf tenderness, Rosalinda's sign/cords Neurologic/Psychiatric: positive: Oriented x3, CN's nml (2-12), Motor nml, Sensation nml, Mood/affect nml Comments/Other: breasts b/l s, nt; nipples b/l intact & everted; colostrum readily expressible - Lab Results Fish Bones: 09/29/17 03:15 Other Labs: Lab Results x24hrs 09/29/17 09/28/17 09/28/17 Range/Units 03:15 16:40 16:40 WBC 8.9 (4.8-10.8) x10^3/uL RBC 3.62 L (4.20-5.40) 10^6/uL Hgb 11.2 L 12.2 (12.0-16.0) g/dL Hct 35.2 L (37.0-47.0) % MCV 97.1 (81.0-99.0) fL MCH 33.7 H (27.0-31.0) pg MCHC 34.7 (32.0-36.0) g/dL RDW 13.3 (12.0-15.0) % Plt Count 175 (130-450) 10^3/uL MPV 9.0 (7.9-10.8) fL Neut # (Auto) 5.9 (1.5-6.6) 10^3/uL Lymph # (Auto) 2.0 (1.5-3.5) 10^3/uL Cottle # (Auto) 0.9 (0.0-1.0) 10^3/uL Eos # (Auto) 0.0 (0.0-0.7) 10^3/uL Baso # (Auto) 0.1 (0.0-0.1) 10^3/uL Absolute Nucleated RBC 0.00 x10^3/uL Nucleated RBC % 0.0 /100WBC Membranes Rupture (NEGATIVE) Blood Type O POSITIVE Antibody Screen NEGATIVE Crossmatch IS Only See Detail 09/28/17 Range/Units 14:30 WBC (4.8-10.8) x10^3/uL RBC (4.20-5.40) 10^6/uL Hgb (12.0-16.0) g/dL Hct (37.0-47.0) % MCV (81.0-99.0) fL MCH (27.0-31.0) pg MCHC (32.0-36.0) g/dL RDW (12.0-15.0) % Plt Count (130-450) 10^3/uL MPV (7.9-10.8) fL Neut # (Auto) (1.5-6.6) 10^3/uL Lymph # (Auto) (1.5-3.5) 10^3/uL Cottle # (Auto) (0.0-1.0) 10^3/uL Eos # (Auto) (0.0-0.7) 10^3/uL Baso # (Auto) (0.0-0.1) 10^3/uL Absolute Nucleated RBC x10^3/uL Nucleated RBC % /100WBC Membranes Rupture POSITIVE A (NEGATIVE) Blood Type Antibody Screen Crossmatch IS Only Assessment/Plan - Problem List (1) (normal spontaneous vaginal delivery) Impression: 27 y/o s/p w/o laceration 09/29/2017 s/p SROM x13.5 hours, afebrile t/o Normal uterine involution Adequate pain control w/o opioid analgesia Expressing breastmilk but not yet nursing P: 1. Continue routine pp care 2. support provided & to continue in ongoing fashion 3. Anticipate d/c PPD#2
[2017-09-30] MEDS: ACETAMINOPHEN 500 MG TABLET PO SCH ×4 (00:09→15:56)
[2017-09-30] MEDS: IBUPROFEN 800 MG TABLET PO SCH ×3 (00:12→12:21)
[2017-09-30] MEDS: DOCUSATE SODIUM 100 MG CAPSULE PO SCH ×2 (00:13→14:01)
--- NOTE | 2017-09-30 09:17 | PROVIDER PROGRESS NOTE ---
Subjective - Prog Note Date Prog Note Date: 09/30/17 Prog Note Time: 09:15 - Subjective Pt reports feeling: Improved Subjective: ORTHOPHOTO TECH/DRAFTSMAN: PPD #1 S: No complaints, doing well O: VSS/AF Ux firm U-8, NT : normal lochia MS/NM: N/C A/P: Doing well Routine care Objective - Vital Signs/Intake & Output Vital Signs: Vital Signs x48h Temp Pulse Resp BP Pulse Ox 09/30/17 08:20 36.8 C 102 H 18 114/72 99 09/30/17 03:41 36.8 C 70 17 110/73 100 Intake & Output: Intake & Output 09/27/17 09/28/17 09/29/17 09/30/17 23:59 23:59 23:59 23:59 Intake Total 1600 2200 360 Output Total 1300 8950 Balance 300 -9265 360 - Lab Results Fish Bones: 09/29/17 03:15
[2017-09-30 12:03] VITALS: BP 129/73
--- NOTE | 2017-09-30 13:14 | Discharge Plan ---
Discharge Plan Disposition: 01 Home, Self Care Condition: Good Diet: Regular Activity Restrictions: pelvic rest x6 weeks Shower Restrictions: No Driving Restrictions: No Weight Bearing: Full Weight Instruction Topics: Vaginal After, Breastfeed How To, Jaundice Signs Inf , Exercises Kegel Additional Instructions or Follow Up instructions: x1 week for support in outpt clinic w/ Virginie Maynard CNM No Smoking: If you smoke, Please STOP! Call for help. Follow-up with: Virginie Maynard CNM, TERESA [Provider Admit Priv/Credential] -
--- NOTE | 2017-09-30 13:18 | DISCHARGE SUMMARY ---
"Discharge Summary Admit Date: 09/28/17 Discharge Date: 09/30/17 Discharging Provider: MEREDITH Code Status: Attempt Resuscitation Condition at Discharge: Good Discharge Disposition: 01 Home, Self Care Discharge Facility Name: [facility] - DIAGNOSES Admission Diagnoses: SROM Discharge Diagnoses with Status of Each Condition: - HPI History of Present Illness: Trisha was admitted w/ SROM @ 37 weeks' EGA. She received 2 doses of Ancef for GBS prophylaxis & an epidural for pain management. She received Pitocin augmentation & progressed to complete dilatation. She delivered a viable male vaginally over an intact perineum w/o complication. - CONSULTS | PROCEDURES Consultations: anesthesia Procedures: epidural placement pitocin augmentation - HOSPITAL COURSE Hospital Course: , Liyl is ambulating & voiding w/o difficulty. She is passing flatus & is tolerating a regular diet. She is now w/o complication. She is having minimal lochia rubra & reports minimal discomfort, well controlled w/ ibuprofen only. She denies hx of pp depression. She is not planning to return to work. She reports excellent social support. She is not planning another @ this time. She is undecided regarding pp contraception. She is planning to f/u x1 week for support. She is able to fully articulate pp warning s/sx, including pp depression s/sx, and pp aftercare instructions. 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 - ALLERGIES Allergies/Adverse Reactions: Allergies Allergy/AdvReac Type Severity Reaction Status Date / Time clindamycin Allergy Hives Verified 09/28/17 16:32 Penicillins AdvReac Intermediate Hives Verified 12/24/16 19:39 Dairy Allergy Unknown Uncoded 12/24/16 19:39 - MEDICATIONS Home Medications: Ambulatory Orders Medication Instructions Recorded Confirmed Ibuprofen [Motrin] 800 mg PO Q6H tablet 09/30/17 - PHYSICAL EXAM AT DISCHARGE General Appearance: positive: No acute distress, Alert Eyes Bilateral: positive: Normal inspection, PERRL, EOMI Respiratory: positive: Chest non-tender, No respiratory distress, Breath sounds nml Cardiovascular: positive: Regular rate & rhythm, No murmur, No gallop Abdomen: positive: Non-tender, No organomegaly, No distention, Other (FF U-3) Skin: positive: Color nml, No rash, Warm, Dry Extremities: positive: Non-tender, Full ROM, Nml appearance, No pedal edema. negative: Calf tenderness, Rosalinda's sign/cords Neurologic/Psychiatric: positive: Oriented x3, CN's nml (2-12), Motor nml, Sensation nml, Mood/affect nml Physical Exam Other/Comments: breasts b/l soft, NT; nipples b/l intact & everted, colostrum readily expressible; perineum intact w/o erythema/edema/ecchymosis; minimal lochia rubra - LABS Result Diagrams: 09/29/17 03:15 - FOLLOW UP Follow Up: x1 week w/ Virginie Maynard CNM, earlier PRN - TIME SPENT Time Spent in Discharge (Minutes): 15"
--- NOTE | 2017-09-30 16:32 | Labor Flowsheet ---
Labor Flowsheet Datetime Report Generated by CPN: 09/30/2017 16:31 Datetime: 09/30/2017 11:49 VITAL SIGNS NBP Sys/Darling/Mean (mmHg): 129 : 73 : 86 Pulse: 92 LaborFlag: Labor Datetime: 09/29/2017 15:14 SpO2 (%): 99 Datetime: 09/29/2017 02:15 STAGE 2 Pushing: Coached on Pushing; Urge to Push Pushing Position: Pushing with Contractions Pushing Progress: Descent with Pushing Datetime: 09/29/2017 02:14 VAGINAL EXAM Dilatation (cm): 10.0 Effacement (%): 100 Station: 1 Exam by: Milagrosa Provider Reviewed Strip: Yes COMMUNICATION Communication: Provider at Bedside Notification Reason: Labor Status Datetime: 09/29/2017 02:10 Temperature (C): 36.6 Datetime: 09/29/2017 02:07 Communication Comments: Attend delivery Datetime: 09/29/2017 01:55 Stage of : Labor Datetime: 09/29/2017 01:52 Patient Position/Activity: Left Tilt; Semi-Fowlers Datetime: 09/29/2017 01:19 MEDICATIONS Pitocin (milliunits): Increased to @ 4 Datetime: 09/29/2017 01:15 Amniotic Fluid Color: Clear Amniotic Fluid Amount: Moderate MATERNAL ASSESSMENT Level of Consciousness: Fully Conscious DTR's/Clonus: DTRs 2+; No Clonus Headache: Denies Breath Sounds, Left: Clear and Equal Breath Sounds, Right: Clear and Equal Nausea/Vomiting: Denies RUQ Epigastric Pain: Denies TEACHING Instructional Method: Verbal Plan of Care: Plan of Care Discussed; Vaginal Delivery Unit Routine: Monitoring Labor/Induction: Augmentation Pain Management: Epidural Medications: Pitocin Related: Activity and Rest Datetime: 09/29/2017 01:00 UTERINE ACTIVITY Monitor Mode: External Frequency (min): 5-6 Quality: Moderate Duration (sec): 90-110 Pattern: Normal: <= 5 Contractions in 10 Minutes Resting Tone (Palpate): Relaxed ASSESSMENT A Monitor Mode: External US FHR Baseline Rate : 125 Variability: Minimal - Undetectable to <=5 bpm Accelerations: 15X15 Decelerations: None Category: Category II Datetime: 09/29/2017 00:47 PAIN Pain Scale: 4 Pain Presence: Intermittent Pain Type: Pressure Pain Location: Back Pain Goal: 8 Pain Relief Measures: Epidural Given Datetime: 09/29/2017 00:41 I/O Interventions: Ice Chips Given Patient Care Comments: peanut ball in firehydrant position Datetime: 09/29/2017 00:32 Contraction Comments: coupleting noted Datetime: 09/28/2017 23:50 Hygiene: Underpad Changed; Peripad Changed Datetime: 09/28/2017 22:47 Pitocin Checklist: At Least 1 Acceleration of 15 bpm x 15 Seconds in 30 Minutes or Adequate Variabi lity; No More than 1 Late Deceleration Occurred in Past 30 Minutes; No More than 2 Variable Decelerat ions > 60 Seconds in Duration and decreasing >60 bpm in 30 minutes; No More than 5 Uterine Contractio ns in 10 Minutes for any 20 Minute Interval; Uterus Palpates Soft between Contractions; IUPC Resting Tone less than 25 mmHg Datetime: 09/28/2017 22:09 Anesthesia Level Check: T7 Datetime: 09/28/2017 22:05 Temperature Route: Oral Datetime: 09/28/2017 21:54 Monitor Interventions for UA: [place] Adjusted Monitor Interventions for FHR: Ultrasound Adjusted Datetime: 09/28/2017 21:53 ANESTHESIA Epidural Procedure: Loading Dose Datetime: 09/28/2017 21:16 Anesthesia Comments: @ bedside Datetime: 09/28/2017 21:04 Analgesics/Sedatives: Fentanyl (mcg) @ 50 Datetime: 09/28/2017 20:53 Membrane Status: Ruptured Membranes Rupture Method: Artificial Amniotic Fluid Odor: Normal Datetime: 09/28/2017 20:36 Pain Assessment Comments: epidural requested Datetime: 09/28/2017 20:00 FHR Baseline Changes: No Baseline Change Datetime: 09/28/2017 19:00 Membrane Comments: SROM 1320 Datetime: 09/28/2017 18:40 Pain Coping: Talking Through Contractions Vaginal Bleeding: None Cervix, Consistency: Soft Cervix, Position: Midposition Lie 'A': Longitudinal Comfort Measures: Breathing/Relaxation Datetime: 09/28/2017 18:30 Oxygen Method: Room Air Datetime: 09/28/2017 16:59 Antibiotics: Ancef IV (Gm) @ 2 PATIENT CARE IV/Blood Work: IV Started; IV Infusing per Order; IV Bag Number @ 1
== END 2017-09-30 16:30 | disposition home or self-care (01) | DRG 775 ==
LOC: WFO 14:14 → FBP 14:15 → WFO 15:29 → FBP 15:30
PROVIDERS: ADMIT Obstetrics & Gynecology; ATTEND Registered Nurse
PROC: 10907ZC Drainage of Amniotic Fluid, Therapeutic from Products of Conception, Via Natural or Artificial Opening (ICD-10-PCS; 2017-09-28)
PROC: 10E0XZZ Delivery of Products of Conception, External Approach (ICD-10-PCS; principal; 2017-09-29)
DX: O99.824 Streptococcus B carrier state complicating childbirth (principal); O62.2 Other uterine inertia; O99.02 Anemia complicating childbirth; D64.9 Anemia, unspecified; Z37.0 Single live birth; Z3A.37 37 weeks gestation of pregnancy; Z88.1 Allergy status to other antibiotic agents; Z88.0 Allergy status to penicillin; Z87.898 Personal history of other specified conditions
CPT/HCPCS: 36415; 84112; 85018; 85025; 86850; 86900; 86901; 86920; 99213

== ENCOUNTER 2018-06-29 13:43 | Emergency (ER) | payer MEDICAID ==
[2018-06-29 14:55] VITALS: BP 130/82
[2018-06-29] MEDS ORDERED: NAPROXEN 250 MG TABLET PO STA (15:43)
[2018-06-29 16:44] LABS: HCG UR QUAL NEGATIVE
--- NOTE | 2018-06-29 17:46 | XRAY Report ---
Reason: pain Procedure Date: 06/29/2018 Accession Number: [id number] / [id number] Procedure: XR - Hip w/Pelvis 2-3V LT CPT Code: FULL RESULT: EXAM: LEFT HIP RADIOGRAPHY EXAM DATE: 06/29/2018 05:30 PM. CLINICAL HISTORY: Chronic right hip pain, worse over the last month. COMPARISON: 12/26/2013 4:19 PM. TECHNIQUE: 2 views. FINDINGS: Bones: Normal. No fractures or bone lesion. Joints: Normal. No dislocation. The hip joint space is preserved. Soft Tissues: Bilateral pelvic phleboliths noted. IMPRESSION: Normal left hip radiography. RADIA
--- NOTE | 2018-06-29 17:47 | XRAY Report ---
Reason: back pain Procedure Date: 06/29/2018 Accession Number: [id number] / [id number] Procedure: XR - Lumbar Spine 2 View CPT Code: FULL RESULT: EXAM: LUMBOSACRAL SPINE RADIOGRAPHY EXAM DATE: 06/29/2018 05:30 PM. CLINICAL HISTORY: Chronic low back and left hip pain, worse over the last month. COMPARISONS: LUMBAR SPINE 2 VIEW 09/19/2015 10:32 AM. TECHNIQUE: 2 views. FINDINGS: Alignment: Normal. No spondylolisthesis or scoliosis. Bones: Five [id number]-ftxoith lumbar vertebral bodies are present. No fractures or bone lesions. Disks: Normal. Disk heights are maintained. Facets: No degenerative changes. Sacroiliac Joints: Unremarkable. Soft Tissues: Normal. The visualized bowel gas pattern is normal. IMPRESSION: Normal lumbar spine radiography. RADIA
--- NOTE | 2018-06-29 18:02 | ED Physician Documentation ---
PD HPI BACK PAIN - Stated complaint Stated Complaint: BACK PAIN - Chief complaint Chief Complaint: Back Pain - Additional information Additional information: 28-year-old Female presents the emergency department with lower back pain which radiates into her left buttocks. The patient reports a burning pain. The patient denies urinary retention, saddle anesthesia, hematuria, motor weakness, sensory changes, IV drug use, fevers or recent trauma. Symptoms are described as moderate. No other associated symptoms. 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 : None HEENT: None Psych: None Musculoskeletal: None Derm: None - Past Surgical History Past Surgical History: No - Present Medications Home Medications: Ambulatory Orders Medication Instructions Recorded Confirmed Ibuprofen [Motrin] 800 mg PO Q6H tablet 09/30/17 Naproxen 500 mg PO BID PRN #60 tablet 06/29/18 - Allergies Allergies/Adverse Reactions: Allergies Allergy/AdvReac Type Severity Reaction Status Date / Time clindamycin Allergy Hives Verified 06/29/18 14:55 Penicillins AdvReac Intermediate Hives Verified 06/29/18 14:55 Dairy Allergy Unknown Uncoded 06/29/18 14:55 - Social History Does the pt smoke?: No Smoking Status: Never smoker Does the pt drink ETOH?: No Does the pt have substance abuse?: No - Immunizations Immunizations are current?: Yes Immunizations: No immun - POLST Patient has POLST: No POLST Status: Full Code PD ED PE NORMAL - General General: Alert and oriented X 3, No acute distress - HEENT HEENT: Atraumatic, PERRL, EOMI, Ears normal - Back Back: No spinal TTP (Tenderness in the paraspinal muscles Of the right lumbar) - Derm Derm: Normal color - Extremities Extremities: No deformity, Normal ROM s pain - Neuro Neuro: Alert and oriented X 3, 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, No motor deficit (5/5 muscle strength in the lower extremities), No sensory deficit, Other (2/4 patellar reflex and normal sensation light touch of the lower extremities) Results - Vitals Vitals: Vital Signs - 24 hr 06/29/18 14:50 Temperature 36.8 C Heart Rate 115 H Respiratory 16 Rate Blood Pressure 130/82 H O2 Saturation 100 Oxygen O2 Source Room air - Labs Labs: Laboratory Tests 06/29/18 16:25 Ur Specific [place] <=1.005 Urine HCG, Qual NEGATIVE - Rads (name of study) XR lumbar hip Radiology: Final report received, See rad report (normal) PD MEDICAL DECISION MAKING - ED course ED course: The patient has no red flags on her workup or physical exam that would suggest cauda equina or epidural abscess and currently emergent MRI is not indicated. Presently the patient appears appropriate for outpatient management. I discussed warning signs and recommended returning to the emergency department for Worsening symptoms or any concerns Departure - Departure Disposition: 01 Home, Self Care Clinical Impression: Low back pain Qualifiers: Chronicity: acute Back pain laterality: unspecified Sciatica presence: with sciatica Sciatica laterality: sciatica laterality unspecified Qualified Code(s): M54.40 - Lumbago with sciatica, unspecified side Condition: Good Instructions: ED Sciatica Prescriptions: Naproxen 500 mg PO BID PRN #60 tablet PRN Reason: Pain Comments: Please follow-up with your primary care physician this week. Please asked them to arrange for outpatient physical therapy. If your symptoms not improving you may need an outpatient MRI. Please return to the emergency department for any worsening or any concerns
== END 2018-06-29 18:20 | disposition home or self-care (01) ==
LOC: ED 13:43
DX: M54.40 Lumbago with sciatica, unspecified side (principal); I10 Essential (primary) hypertension
CPT/HCPCS: 72100; 73502; 81025; 99283; A9270

== ENCOUNTER 2019-09-15 18:21 | Outpatient (CLI) | payer MEDICAID | END 2019-09-15 18:22 | disposition EMS.NT | LOC: EMS 18:21 | PROVIDERS: ATTEND Surgery | DX: Z03.89 Encounter for observation for other suspected diseases and conditions ruled out (principal) ==

== ENCOUNTER 2019-09-15 19:32 | Emergency (ER) | payer MEDICAID ==
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
[2019-09-15 20:39] LABS: ACETAMINOPHEN < 10 ug/mL (10-30); BUN - BLOOD UREA NITROGEN 12 mg/dL (6-20); CALCIUM 9.8 mg/dL (8.5-10.3); CARBON DIOXIDE - CO2 23 mmol/L (21-32); CHLORIDE 101 mmol/L (101-111); CREATININE 0.6 mg/dL (0.4-1.0); GLUCOSE 100 mg/dL (70-100); SALICYLATE < 6.0 mg/dL; SODIUM 136 mmol/L (135-145)
[2019-09-15 20:57] LABS: MUDS CUTOFF CONCENTRATIONS CUTOFF CONC BELOW:
[2019-09-15 20:59] LABS: BILIRUBIN,URINE NEGATIVE (NEGATIVE); GLUCOSE, URINE (UA) NEGATIVE (NEGATIVE); KETONES,URINE (UA) NEGATIVE (NEGATIVE); LEUKOCYTE ESTERASE, URINE NEGATIVE (NEGATIVE); NITRITE,URINE NEGATIVE (NEGATIVE); OCCULT BLOOD,URINE TRACE-INTA (NEGATIVE); PROTEIN,URINE NEGATIVE (NEGATIVE); UROBILINOGEN,URINE 0.2 (NORMAL) E.U./dL (NORMAL)
[2019-09-15 21:01] LABS: CLARITY,URINE CLEAR (CLEAR); HCG UR QUAL NEGATIVE
[2019-09-15 21:04] LABS: BASOPHILS # (AUTO) 0.1 10^3/uL (0.0-0.1); BASOPHILS % (AUTO) 0.9 %; EOSINOPHILS # (AUTO) 0.1 10^3/uL (0.0-0.7); EOSINOPHILS % (AUTO) 0.5 %; MEAN CORPUSCULAR HEMOGLOBIN 32.5 pg (27.0-31.0); MEAN CORPUSCULAR HGB CONC 34.1 g/dL (32.0-36.0); MEAN CORPUSCULAR VOLUME 95.3 fL (81.0-99.0); MEAN PLATELET VOLUME 9.2 fL (7.9-10.8); MONOCYTES % (AUTO) 10.2 %; NEUTROPHILS # (AUTO) 6.6 10^3/uL (1.5-6.6); NEUTROPHILS % (AUTO) 68.1 %; PLT - PLATELET COUNT 307 10^3/uL (130-450); RED CELL DISTRIBUTION WIDTH 12.7 % (12.0-15.0); WHITE BLOOD COUNT 9.7 x10^3/uL (4.8-10.8)
[2019-09-15 21:10] LABS: AMPHETAMINE SCREEN,URINE NEGATIVE (NEGATIVE); BENZODIAZEPINES SCREEN, URINE NEGATIVE (NEGATIVE); COCAINE SCREEN URINE NEGATIVE (NEGATIVE); METHADONE SCREEN, URINE NEGATIVE (NEGATIVE); METHAMPHETAMINES SCREEN, URINE NEGATIVE (NEGATIVE); OPIATE SCREEN, URINE NEGATIVE (NEGATIVE); OXYCODONE SCREEN, URINE NEGATIVE (NEGATIVE); PROPOXYPHENE SCREEN, URINE NEGATIVE (NEGATIVE); TRICYCLIC ANTIDEPRESSANT,URINE NEGATIVE (NEGATIVE)
--- NOTE | 2019-09-16 13:49 | ED Physician Documentation ---
ED Addendum - Addendum Addendum: 09/16/19 13:48 29-year-old woman here voluntarily for depression and suicidal ideation, seen by social work and preliminarily accepted at [facility] in transport but they would like a coronavirus test first this was ordered. Turnaround time Is about a day so no disposition until tomorrow. 09/16/19 21:02 She has been stable throughout my shift, she is clearly talking to herself and responding to external stimuli but is cooperative and pleasant enough.
[2019-09-17 20:40] VITALS: BP 110/81
== END 2019-09-17 20:44 ==
LOC: ED 19:32
DX: F32.9 Major depressive disorder, single episode, unspecified (principal); F44.9 Dissociative and conversion disorder, unspecified; R45.851 Suicidal ideations; R44.0 Auditory hallucinations; R44.1 Visual hallucinations; I10 Essential (primary) hypertension; Z11.59 Encounter for screening for other viral diseases
CPT/HCPCS: 36415; 80048; 80306; 80307; 80320; 80329; 81001; 81003; 81025; 81599; 85025; 87086; 93005; 99281; 99285

== ENCOUNTER 2019-10-08 10:59 | Outpatient (CLI) | payer MEDICAID | END 2019-10-08 11:00 | disposition EMS.NT | LOC: EMS 10:59 | PROVIDERS: ATTEND Surgery | DX: Z03.89 Encounter for observation for other suspected diseases and conditions ruled out (principal) ==

== ENCOUNTER 2019-10-08 13:11 | Emergency (ER) | payer MEDICAID ==
[2019-10-08 13:17] VITALS: BP 114/84
--- NOTE | 2019-10-08 14:29 | XRAY Report ---
PROCEDURE: Chest 2 View X-Ray INDICATIONS: posterior pain TECHNIQUE: 2 view(s) of the chest. COMPARISON: None. FINDINGS: Surgical changes and devices: None. Lungs and pleura: No pleural effusions or pneumothorax. Lungs are clear. Mediastinum: Mediastinal contours are normal. Heart size is normal. Bones and chest wall: No suspicious bony abnormalities. Soft tissues appear unremarkable. IMPRESSION: No evidence acute pulmonary process. Reviewed by: Edwin Malave MD on 10/08/2019 1:28 PM AKOPHELIA Approved by: Edwin Malave MD on 10/08/2019 1:28 PM AKDT Station ID: [id number]
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
== END 2019-10-08 15:16 | disposition home or self-care (01) ==
LOC: ED 13:11
DX: S93.411A Sprain of calcaneofibular ligament of right ankle, initial encounter (principal); S20.219A Contusion of unspecified front wall of thorax, initial encounter; W17.89XA Other fall from one level to another, initial encounter; Y93.42 Activity, yoga; F41.9 Anxiety disorder, unspecified; I10 Essential (primary) hypertension
CPT/HCPCS: 71046; 99283

== ENCOUNTER 2019-10-13 14:52 | Emergency (ER) | payer MEDICAID ==
[2019-10-13 15:01] VITALS: BP 124/73
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
== END 2019-10-13 16:48 | disposition home or self-care (01) ==
LOC: ED 14:52
DX: S50.12XA Contusion of left forearm, initial encounter (principal); S50.11XA Contusion of right forearm, initial encounter; S80.01XA Contusion of right knee, initial encounter; Y08.89XA Assault by other specified means, initial encounter
CPT/HCPCS: 99281; 99282

== ENCOUNTER 2019-10-25 19:16 | Emergency (ER) | payer MEDICAID ==
--- NOTE | 2019-10-25 19:22 | ED Physician Documentation ---
History of Present Illness - Stated complaint Stated Complaint: CHEST PX, LETHARGY - History obtained from History obtained from: Patient (the patient is a 29 y/o f w a cc of not feeling well. She denies any hx of WI, PE, DVT. Denies any syncope today. denies any fevers. currently she is denying any chest pain or any complaints. the patient is asking to use a phone and states that she is undomiciled.) Review of Systems Ten Systems: 10 systems reviewed and negative Constitutional: reports: Reviewed and negative Eyes: reports: Reviewed and negative Ears: reports: Reviewed and negative Nose: reports: Reviewed and negative Throat: reports: Reviewed and negative Cardiac: reports: Reviewed and negative Respiratory: reports: Reviewed and negative GI: reports: Reviewed and negative : reports: Reviewed and negative Skin: reports: Reviewed and negative Musculoskeletal: reports: Reviewed and negative Neurologic: reports: Reviewed and negative Psychiatric: reports: Reviewed and negative Endocrine: reports: Reviewed and negative Immunocompromised: reports: Reviewed and negative PD PAST MEDICAL HISTORY - Past Medical History Cardiovascular: None, Hypertension Respiratory: None Neuro: None Endocrine/Autoimmune: None GI: 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 HEENT: None Psych: None Musculoskeletal: None Derm: None - Past Surgical History Past Surgical History: No - Present Medications Home Medications: Ambulatory Orders Medication Instructions Recorded Confirmed LORazepam [Ativan] 5 mg ORAL QPM 10/08/19 10/08/19 - Allergies Allergies/Adverse Reactions: Allergies Allergy/AdvReac Type Severity Reaction Status Date / Time cephalexin Allergy Hives Verified 10/25/19 19:19 clindamycin Allergy Hives Verified 10/25/19 19:19 Penicillins AdvReac Intermediate Hives Verified 10/25/19 19:19 Dairy Allergy Unknown Uncoded 10/25/19 19:19 - Social History Does the pt smoke?: No Smoking Status: Never smoker Does the pt drink ETOH?: No Does the pt have substance abuse?: No - Immunizations Immunizations are current?: Yes Immunizations: No immun - POLST Patient has POLST: No POLST Status: Full Code PD ED PE NORMAL - Vitals Vital signs reviewed: Yes - General General: Alert and oriented X 3, No acute distress, Well developed/nourished - HEENT HEENT: PERRL, Moist mucous membranes, Pharynx benign - Neck Neck: Supple, no meningeal sign - Cardiac Cardiac: RRR, No murmur, Strong equal pulses - Respiratory Respiratory: No respiratory distress, Clear bilaterally - Abdomen Abdomen: Normal bowel sounds, Soft, Non tender, Non distended, No organomegaly - Back Back: No CVA TTP, No spinal TTP - Derm Derm: Normal color, Warm and dry, No rash - Extremities Extremities: No deformity, No tenderness to palpate, Normal ROM s pain, No edema, No calf tenderness / cord - Neuro Neuro: Alert and oriented X 3, 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 patient is refusing any blood work, chest radiograph or any additional testing. she denies any symptoms currently.) Departure - Departure Disposition: 01 Home, Self Care Clinical Impression: Atypical chest pain Condition: Stable Instructions: ED Chest Pain Atypical Unkn Cause Follow-Up: your, doctor [Other] - Tomorrow
[2019-10-25 19:26] VITALS: BP 122/70
== END 2019-10-25 20:06 | disposition home or self-care (01) ==
LOC: ED 19:16
DX: R07.89 Other chest pain (principal); I10 Essential (primary) hypertension; Z53.20 Procedure and treatment not carried out because of patient's decision for unspecified reasons
CPT/HCPCS: 93005; 99283

== ENCOUNTER 2019-10-26 21:45 | Outpatient (CLI) | payer MEDICAID | END 2019-10-26 23:59 | disposition critical access hospital (66) | LOC: EMS 21:45 | PROVIDERS: ATTEND Surgery | DX: N93.9 Abnormal uterine and vaginal bleeding, unspecified (principal); R10.9 Unspecified abdominal pain | CPT/HCPCS: A0425; A0429 ==

== ENCOUNTER 2019-10-26 21:59 | Emergency (ER) | payer MEDICAID ==
--- NOTE | 2019-10-26 22:09 | ED Physician Documentation ---
History of Present Illness - Stated complaint Stated Complaint: FEM /BLEEDING - Chief complaint Chief Complaint: Abd Pain - History obtained from History obtained from: Patient (Patient is a 29-year-old undomiciled female presents via ambulance.On my examination she denies any complaints she reports that she does not have a place to stay and would like to stay in the emergency room. She denies any homicidal or suicidal thoughts denies any auditory or visual hallucinations.), Other (She originally told nursing staff and EMS first responders that she was and miscarrying. On my evaluation she states that she is not and that she is undomiciled and would like a place to stay.) Review of Systems Ten Systems: 10 systems reviewed and negative Constitutional: reports: Reviewed and negative Eyes: reports: Reviewed and negative Ears: reports: Reviewed and negative Nose: reports: Reviewed and negative Throat: reports: Reviewed and negative Cardiac: reports: Reviewed and negative Respiratory: reports: Reviewed and negative GI: reports: Reviewed and negative : reports: Reviewed and negative Skin: reports: Reviewed and negative Musculoskeletal: reports: Reviewed and negative Neurologic: reports: Reviewed and negative Psychiatric: reports: Reviewed and negative Endocrine: reports: Reviewed and negative Immunocompromised: reports: Reviewed and negative PD PAST MEDICAL HISTORY - Past Medical History Cardiovascular: None, Hypertension Respiratory: None Neuro: None Endocrine/Autoimmune: None GI: None 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 : None HEENT: None Psych: None Musculoskeletal: None Derm: None - Past Surgical History Past Surgical History: No - Present Medications Home Medications: Ambulatory Orders Medication Instructions Recorded Confirmed LORazepam [Ativan] 5 mg ORAL QPM 10/08/19 10/08/19 - Allergies Allergies/Adverse Reactions: Allergies Allergy/AdvReac Type Severity Reaction Status Date / Time cephalexin Allergy Hives Verified 10/26/19 22:10 clindamycin Allergy Hives Verified 10/26/19 22:10 Penicillins AdvReac Intermediate Hives Verified 10/26/19 22:10 Dairy Allergy Unknown Uncoded 10/26/19 22:10 - Social History Does the pt smoke?: No Smoking Status: Never smoker Does the pt drink ETOH?: No Does the pt have substance abuse?: No - Immunizations Immunizations are current?: Yes Immunizations: No immun - POLST Patient has POLST: No POLST Status: Full Code PD ED PE NORMAL - Vitals Vital signs reviewed: Yes - General General: Alert and oriented X 3, No acute distress - HEENT HEENT: PERRL - Neck Neck: Supple, no meningeal sign - Cardiac Cardiac: RRR, No murmur - Respiratory Respiratory: Clear bilaterally - Abdomen Abdomen: Normal bowel sounds, Soft, Non tender, Non distended - Derm Derm: Warm and dry - Extremities Extremities: No deformity - Neuro Neuro: Alert and oriented X 3 - Psych Psych: Normal mood, Normal affect Results - Vitals Vitals: Vital Signs - 24 hr 10/26/19 10/27/19 10/27/19 22:00 00:36 05:39 Temperature 36.5 C 36.5 C 36.5 C Heart Rate 91 75 65 Respiratory 18 16 14 Rate Blood Pressure 116/82 H 116/85 H 119/76 O2 Saturation 100 100 100 Oxygen O2 Source Room air - Labs Labs: Laboratory Tests 10/26/19 22:54 Urine Color RED/BLOODY Urine Clarity HAZY Urine pH 6.0 Ur Specific [place] 1.010 Urine Protein 30 H Urine Glucose (UA) NEGATIVE Urine Ketones NEGATIVE Urine Occult Blood LARGE H Urine Nitrite NEGATIVE Urine Bilirubin NEGATIVE Urine Urobilinogen 0.2 (NORMAL) Ur Leukocyte Esterase NEGATIVE Urine RBC TNTC H Urine WBC 0-3 Ur Squamous Epith Cells FEW Squamous Urine Bacteria Rare Ur Microscopic Review INDICATED Urine Culture Comments NOT INDICATED Urine HCG, Qual NEGATIVE PD MEDICAL DECISION MAKING - ED course Complexity details: reviewed results, re-evaluated patient, considered differential (Patient is undomiciled. UA shows no signs of infection, HCG Negative. ), d/w patient, other (will consult social work to assist with penitentiary.) Departure - Departure Disposition: 01 Home, Self Care Clinical Impression: Homelessness Condition: Stable Follow-Up: [facility] [Provider Group] - 10/27/19 Comments: Establish care with a primary care provider.
[2019-10-26 23:06] LABS: BILIRUBIN,URINE NEGATIVE (NEGATIVE); GLUCOSE, URINE (UA) NEGATIVE (NEGATIVE); KETONES,URINE (UA) NEGATIVE (NEGATIVE); LEUKOCYTE ESTERASE, URINE NEGATIVE (NEGATIVE); NITRITE,URINE NEGATIVE (NEGATIVE); OCCULT BLOOD,URINE LARGE (NEGATIVE); PROTEIN,URINE 30 mg/dL (NEGATIVE); UROBILINOGEN,URINE 0.2 (NORMAL) E.U./dL (NORMAL)
[2019-10-26 23:08] LABS: BACTERIA,URINE Rare /HPF (None Seen); CLARITY,URINE HAZY (CLEAR); HCG UR QUAL NEGATIVE; RBC,URINE TNTC /HPF (0-5); SQUAMOUS EPITHELIAL CELL,UR FEW Squamous (<= Few)
[2019-10-27 05:40] VITALS: BP 119/76
== END 2019-10-27 08:56 | disposition home or self-care (01) ==
LOC: EDUNIT# → ED 21:59
DX: Z59.0 Homelessness (principal); I10 Essential (primary) hypertension
CPT/HCPCS: 81001; 81003; 81025; 87086; 99281; 99283

== ENCOUNTER 2019-10-28 12:14 | Emergency (ER) | payer MEDICAID ==
[2019-10-28 12:44] LABS: MUDS CUTOFF CONCENTRATIONS CUTOFF CONC BELOW:
[2019-10-28 12:51] LABS: BILIRUBIN,URINE NEGATIVE (NEGATIVE); GLUCOSE, URINE (UA) NEGATIVE (NEGATIVE); KETONES,URINE (UA) NEGATIVE (NEGATIVE); LEUKOCYTE ESTERASE, URINE NEGATIVE (NEGATIVE); NITRITE,URINE NEGATIVE (NEGATIVE); OCCULT BLOOD,URINE LARGE (NEGATIVE); PROTEIN,URINE NEGATIVE (NEGATIVE); UROBILINOGEN,URINE 0.2 (NORMAL) E.U./dL (NORMAL)
[2019-10-28 12:52] LABS: CLARITY,URINE CLEAR (CLEAR)
[2019-10-28 12:58] LABS: BACTERIA,URINE None Seen /HPF (None Seen); SQUAMOUS EPITHELIAL CELL,UR RARE Squamous (<= Few)
[2019-10-28 13:01] LABS: AMPHETAMINE SCREEN,URINE NEGATIVE (NEGATIVE); BENZODIAZEPINES SCREEN, URINE NEGATIVE (NEGATIVE); COCAINE SCREEN URINE NEGATIVE (NEGATIVE); METHADONE SCREEN, URINE NEGATIVE (NEGATIVE); METHAMPHETAMINES SCREEN, URINE NEGATIVE (NEGATIVE); OPIATE SCREEN, URINE NEGATIVE (NEGATIVE); OXYCODONE SCREEN, URINE NEGATIVE (NEGATIVE); PROPOXYPHENE SCREEN, URINE NEGATIVE (NEGATIVE); TRICYCLIC ANTIDEPRESSANT,URINE NEGATIVE (NEGATIVE)
[2019-10-28 14:02] LABS: BASOPHILS # (AUTO) 0.1 10^3/uL (0.0-0.1); BASOPHILS % (AUTO) 0.9 %; EOSINOPHILS % (AUTO) 0.6 %; HCG UR QUAL NEGATIVE; LYMPHOCYTES # (AUTO) 1.5 10^3/uL (1.5-3.5); LYMPHOCYTES % (AUTO) 21.4 %; MEAN CORPUSCULAR HEMOGLOBIN 32.5 pg (27.0-31.0); MEAN CORPUSCULAR HGB CONC 33.1 g/dL (32.0-36.0); MEAN CORPUSCULAR VOLUME 98.1 fL (81.0-99.0); MEAN PLATELET VOLUME 9.1 fL (7.9-10.8); MONOCYTES # (AUTO) 0.7 10^3/uL (0.0-1.0); MONOCYTES % (AUTO) 10.1 %; NEUTROPHILS # (AUTO) 4.6 10^3/uL (1.5-6.6); NEUTROPHILS % (AUTO) 66.7 %; PLT - PLATELET COUNT 238 10^3/uL (130-450); RED BLOOD COUNT 3.69 10^6/uL (4.20-5.40); WHITE BLOOD COUNT 6.9 x10^3/uL (4.8-10.8)
--- NOTE | 2019-10-28 14:12 | ED Physician Documentation ---
PD HPI MHE - Stated complaint Stated Complaint: MHE/F - Chief complaint Chief Complaint: General - History obtained from History obtained from: Patient, Family - History of Present Illness Pain level max: 0 Pain level now: 0 - Additional information Additional information: 29-year-old female with a long psychiatric history presents to the emergency department with family. They state that she has been acting irrational lately. Shaun Davis, [facility], also saw her today. He has already spoken with social work here. Patient is not suicidal or homicidal. She does believe that she is with triplets. She states that God told her she was . Has had multiple negative test recently. Nothing makes it better or worse. Patient was recently admitted to [facility] Review of Systems Ten Systems: 10 systems reviewed and negative Constitutional: denies: Fever, Chills Nose: denies: Rhinorrhea / runny nose, Congestion Cardiac: denies: Chest pain / pressure Respiratory: denies: Cough GI: denies: Abdominal Pain, Abdominal Swelling, Vomiting, Diarrhea : reports: Vaginal bleeding (Currently on her menses). 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 : None HEENT: None Psych: None Musculoskeletal: None Derm: None - Past Surgical History Past Surgical History: No - Present Medications Home Medications: Ambulatory Orders Medication Instructions Recorded Confirmed LORazepam [Ativan] 5 mg ORAL QPM 10/08/19 10/08/19 - Allergies Allergies/Adverse Reactions: Allergies Allergy/AdvReac Type Severity Reaction Status Date / Time cephalexin Allergy Hives Verified 10/28/19 12:27 clindamycin Allergy Hives Verified 10/28/19 12:27 Penicillins AdvReac Intermediate Hives Verified 10/28/19 12:27 Dairy Allergy Unknown Uncoded 10/26/19 22:10 - Social History Does the pt smoke?: No Smoking Status: Never smoker Does the pt drink ETOH?: No Does the pt have substance abuse?: No - Immunizations Immunizations are current?: Yes Immunizations: No immun - POLST Patient has POLST: No POLST Status: Full Code PD ED PE NORMAL - Vitals Vital signs reviewed: Yes - General General: Alert and oriented X 3, No acute distress, Well developed/nourished - HEENT HEENT: PERRL, Moist mucous membranes - Neck Neck: Supple, no meningeal sign - Cardiac Cardiac: RRR, Strong equal pulses - Respiratory Respiratory: No respiratory distress, Clear bilaterally - Abdomen Abdomen: Soft, Non tender, Non distended - Derm Derm: Warm and dry - Extremities Extremities: No edema - Neuro Neuro: Alert and oriented X 3 - Psych Psych: Normal mood, Normal affect Results - Vitals Vitals: Vital Signs - 24 hr 10/28/19 10/28/19 10/28/19 12:27 15:07 17:11 Temperature 36.9 C 37.0 C Heart Rate 84 73 74 Respiratory 16 16 16 Rate Blood Pressure 129/83 H 118/85 H 120/84 H O2 Saturation 100 100 100 Oxygen O2 Source Room air - EKG (time done) 1618 Rate: Rate (enter#) (74) Rhythm: NSR [place]: Normal Intervals: Normal AR QRS: Normal Ischemia: Normal ST segments - Labs Labs: Laboratory Tests 10/28/19 10/28/19 10/28/19 12:38 12:38 12:38 WBC 6.9 RBC 3.69 L Hgb 12.0 Hct 36.2 L MCV 98.1 MCH 32.5 H MCHC 33.1 RDW 13.0 Plt Count 238 MPV 9.1 Neut # (Auto) 4.6 Lymph # (Auto) 1.5 [place] # (Auto) 0.7 Eos # (Auto) 0.0 Baso # (Auto) 0.1 Absolute Nucleated RBC 0.00 Nucleated RBC % 0.0 Sodium 137 Potassium 3.7 Chloride 99 L Carbon Dioxide 28 Anion Gap 10.0 BUN 14 Creatinine 0.6 Estimated GFR (MDRD) 120 Glucose 107 H Calcium 9.3 Total Bilirubin 0.4 AST 19 ALT 22 Alkaline Phosphatase 115 Total Protein 7.0 Albumin 4.6 Globulin 2.4 Albumin/Globulin Ratio 1.9 Lipase 46 TSH 0.92 Urine Color Urine Clarity Urine pH Ur Specific [place] Urine Protein Urine Glucose (UA) Urine Ketones Urine Occult Blood Urine Nitrite Urine Bilirubin Urine Urobilinogen Ur Leukocyte Esterase Urine RBC Urine WBC Ur Squamous Epith Cells Urine Bacteria Ur Microscopic Review Urine Culture Comments Urine HCG, Qual Salicylates < 6.0 Urine Opiates Screen Ur Oxycodone Screen Urine Methadone Screen Ur Propoxyphene Screen Acetaminophen < 10 L Ur Barbiturates Screen Ur Tricyclics Screen Ur Phencyclidine Scrn Ur Amphetamine Screen U Methamphetamines Scrn U Benzodiazepines Scrn Urine Cocaine Screen U Cannabinoids Screen Ethyl Alcohol < 5.0 10/28/19 10/28/19 12:38 12:38 WBC RBC Hgb Hct MCV MCH MCHC RDW Plt Count MPV Neut # (Auto) Lymph # (Auto) [place] # (Auto) Eos # (Auto) Baso # (Auto) Absolute Nucleated RBC Nucleated RBC % Sodium Potassium Chloride Carbon Dioxide Anion Gap BUN Creatinine Estimated GFR (MDRD) Glucose Calcium Total Bilirubin AST ALT Alkaline Phosphatase Total Protein Albumin Globulin Albumin/Globulin Ratio Lipase TSH Urine Color LT. YELLOW Urine Clarity CLEAR Urine pH 7.0 Ur Specific [place] <=1.005 <=1.005 Urine Protein NEGATIVE Urine Glucose (UA) NEGATIVE Urine Ketones NEGATIVE Urine Occult Blood LARGE H Urine Nitrite NEGATIVE Urine Bilirubin NEGATIVE Urine Urobilinogen 0.2 (NORMAL) Ur Leukocyte Esterase NEGATIVE Urine RBC 6-10 H Urine WBC 0-3 Ur Squamous Epith Cells RARE Squamous Urine Bacteria None Seen Ur Microscopic Review INDICATED Urine Culture Comments NOT INDICATED Urine HCG, Qual NEGATIVE Salicylates Urine Opiates Screen NEGATIVE Ur Oxycodone Screen NEGATIVE Urine Methadone Screen NEGATIVE Ur Propoxyphene Screen NEGATIVE Acetaminophen Ur Barbiturates Screen NEGATIVE Ur Tricyclics Screen NEGATIVE Ur Phencyclidine Scrn NEGATIVE Ur Amphetamine Screen NEGATIVE U Methamphetamines Scrn NEGATIVE U Benzodiazepines Scrn NEGATIVE Urine Cocaine Screen NEGATIVE U Cannabinoids Screen NEGATIVE Ethyl Alcohol PD MEDICAL DECISION MAKING - ED course Complexity details: reviewed results, re-evaluated patient, considered differential, d/w patient, d/w family, d/w consultant internship ED course: Patient is medically clear for psychiatric care. Discussed the case with social workJo who recommends a [facility] dispatch and a dM evaluation. DMRUPALI, Nicolle, was consulted and evaluated the patient. No criteria for involuntary detainment at this time. Patient does not wish to go anywhere voluntarily. Patient request to be discharged at this time. She is able to contract for safety. She is not homicidal or suicidal. She will follow-up with her [facility] counselor and psychiatrist next week. Patient counseled regarding signs and symptoms for which I believe and urgent re-evaluation would be necessary. Patient with good understanding of and agreement to plan and is comfortable going home at this time This document was made in part using voice recognition software. While efforts are made to proofread this document, sound alike and grammatical errors may occur. Departure - Departure Disposition: 01 Home, Self Care Clinical Impression: Bipolar affective disorder Qualifiers: Active/Remission status: currently active Current bipolar episode type: mixed Current episode severity: unspecified Qualified Code(s): F31.60 - Bipolar disorder, current episode mixed, unspecified Condition: Good Instructions: Bipolar Disorder Comments: You need to follow up with [facility] and see your counselor/psychiatrist weekly. Discharge Date/Time: 10/28/19 17:36
[2019-10-28 14:23] LABS: ACETAMINOPHEN < 10 ug/mL (10-30); ALBUMIN 4.6 g/dL (3.2-5.5); ALBUMIN/GLOBULIN RATIO 1.9 (1.0-2.2); ALKALINE PHOSPHATASE 115 IU/L (42-121); ALT ALANINE AMINOTRANSFERASE 22 IU/L (10-60); AST ASPARTATE AMINOTRANSFERASE 19 IU/L (10-42); BILIRUBIN,TOTAL 0.4 mg/dL (0.2-1.0); BUN - BLOOD UREA NITROGEN 14 mg/dL (6-20); CALCIUM 9.3 mg/dL (8.5-10.3); CARBON DIOXIDE - CO2 28 mmol/L (21-32); CHLORIDE 99 mmol/L (101-111); CREATININE 0.6 mg/dL (0.4-1.0); GLUCOSE 107 mg/dL (70-100); LIPASE 46 U/L (22-51); SALICYLATE < 6.0 mg/dL; SODIUM 137 mmol/L (135-145)
[2019-10-28 17:29] VITALS: BP 120/84
== END 2019-10-28 17:36 | disposition home or self-care (01) ==
LOC: ED 12:14
DX: F31.60 Bipolar disorder, current episode mixed, unspecified (principal); I10 Essential (primary) hypertension
CPT/HCPCS: 36415; 80053; 80306; 80307; 80320; 80329; 81001; 81003; 81025; 83690; 84443; 85025; 87086; 93005; 99283; 99285

== ENCOUNTER 2019-10-30 19:43 | Outpatient (CLI) | payer MEDICAID | END 2019-10-30 19:44 | disposition critical access hospital (66) | LOC: EMS 19:43 | PROVIDERS: ATTEND Surgery | DX: S09.90XA Unspecified injury of head, initial encounter (principal); W19.XXXA Unspecified fall, initial encounter; Y92.481 Parking lot as the place of occurrence of the external cause; Z59.0 Homelessness; Z72.89 Other problems related to lifestyle | CPT/HCPCS: A0425; A0427; A0999 ==

== ENCOUNTER 2019-10-30 19:59 | Emergency (ER) | payer MEDICAID ==
[2019-10-30] MEDS ORDERED: THIAMINE INJ 100 MG in SODIUM CHLORIDE 0.9% 50 ML IV STA (20:08)
--- NOTE | 2019-10-30 20:09 | ED Physician Documentation ---
PD HPI MAJOR TRAUMA - Stated complaint Stated Complaint: FALL/ HEAD INJ - Chief complaint Chief Complaint: Trauma Hd/Nk - History obtained from History obtained from: Patient, EMS - Additional information Additional information: Brought in by ambulance, I guess they had seen her multiple times today. She denies drinking but certainly looks drunk. After the last visit she had fallen. She has evidence of trauma about the left side of the face. Patient is unreliable historian due to I think intoxication versus altered mental status. 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 HEENT: None Psych: None Musculoskeletal: None Derm: None - Past Surgical History Past Surgical History: No - Present Medications Home Medications: Ambulatory Orders Medication Instructions Recorded Confirmed LORazepam [Ativan] 5 mg ORAL QPM 10/08/19 10/08/19 - Allergies Allergies/Adverse Reactions: Allergies Allergy/AdvReac Type Severity Reaction Status Date / Time cephalexin Allergy Hives Verified 10/30/19 20:04 clindamycin Allergy Hives Verified 10/30/19 20:04 Penicillins AdvReac Intermediate Hives Verified 10/30/19 20:04 Dairy Allergy Unknown Uncoded 10/30/19 20:04 - Social History Does the pt smoke?: No Smoking Status: Never smoker Does the pt drink ETOH?: No Does the pt have substance abuse?: No - Immunizations Immunizations are current?: Yes Immunizations: No immun - POLST Patient has POLST: No POLST Status: Full Code PD ED PE NORMAL - Vitals Vital signs reviewed: Yes - General General: Other (Slow slurred speech, cooperative though. She has scrapes on the left side of the face without bony tenderness or deformity. The left upper incisor has a little chip in it. She has nystagmus.) - Neck Neck: No bony TTP (But maintained in a c-collar pending imaging given intoxication) - Cardiac Cardiac: RRR, No murmur - Respiratory Respiratory: No respiratory distress, Clear bilaterally - Abdomen Abdomen: Soft, Non tender - Extremities Extremities: No deformity, No tenderness to palpate - Neuro Neuro: No motor deficit, No sensory deficit Eye Opening: To Voice Motor: Obeys Commands Verbal: Confused GCS Score: 13 Results - Vitals Vitals: Vital Signs - 24 hr 10/30/19 10/30/19 10/30/19 20:05 20:35 21:10 Temperature 37.0 C Heart Rate 110 H 120 H 99 Respiratory 16 20 16 Rate Blood Pressure 113/70 104/72 95/52 L O2 Saturation 99 100 97 10/30/19 22:00 Temperature Heart Rate 114 H Respiratory 18 Rate Blood Pressure 102/66 O2 Saturation 97 Oxygen O2 Source Room air - Labs Labs: Laboratory Tests 10/30/19 10/30/19 10/30/19 20:24 20:37 20:37 WBC 7.3 RBC 3.89 L Hgb 12.9 Hct 38.8 MCV 99.7 H MCH 33.2 H MCHC 33.2 RDW 13.2 Plt Count 246 MPV 9.1 Neut # (Auto) 4.2 Lymph # (Auto) 2.1 Saline # (Auto) 0.8 Eos # (Auto) 0.1 Baso # (Auto) 0.1 Absolute Nucleated RBC 0.00 Nucleated RBC % 0.0 Sodium 147 H Potassium 3.3 L Chloride 105 Carbon Dioxide 25 Anion Gap 17.0 H BUN 13 Creatinine 0.6 Estimated GFR (MDRD) 120 Glucose 165 H Calcium 8.6 Total Bilirubin 0.6 AST 21 ALT 22 Alkaline Phosphatase 99 Total Protein 7.3 Albumin 4.5 Globulin 2.8 Albumin/Globulin Ratio 1.6 Lipase 55 H Salicylates < 6.0 Urine Opiates Screen NEGATIVE Ur Oxycodone Screen NEGATIVE Urine Methadone Screen NEGATIVE Ur Propoxyphene Screen NEGATIVE Acetaminophen < 10 L Ur Barbiturates Screen NEGATIVE Ur Tricyclics Screen NEGATIVE Ur Phencyclidine Scrn NEGATIVE Ur Amphetamine Screen NEGATIVE U Methamphetamines Scrn NEGATIVE U Benzodiazepines Scrn NEGATIVE Urine Cocaine Screen NEGATIVE U Cannabinoids Screen NEGATIVE Ethyl Alcohol 333.6 - Rads (name of study) CT Head and Csp;ine Radiology: EMP read contemporaneously (NAD) PD MEDICAL DECISION MAKING - ED course ED course: 29 yo F BIBA for AMS/fall. CTH/Cspine Neg. facial abrasions cleansed. Tetanus updated. BAL quite high, will baord in ED til sober for reval. Departure - Departure Clinical Impression: Abrasion Injury of head and neck Qualifiers: Encounter type: initial encounter Qualified Code(s): S09.90XA - Unspecified injury of head, initial encounter Alcohol intoxication Qualifiers: Complication of substance-induced condition: with delirium Qualified Code(s): F10.921 - Alcohol use, unspecified with intoxication delirium Condition: Good Record reviewed to determine appropriate education?: Yes Instructions: ED Abrasion, ED Alcohol Intoxication
[2019-10-30 20:43] LABS: BASOPHILS # (AUTO) 0.1 10^3/uL (0.0-0.1); BASOPHILS % (AUTO) 1.1 %; EOSINOPHILS # (AUTO) 0.1 10^3/uL (0.0-0.7); EOSINOPHILS % (AUTO) 1.1 %; HGB - HEMOGLOBIN 12.9 g/dL (12.0-16.0); LYMPHOCYTES # (AUTO) 2.1 10^3/uL (1.5-3.5); LYMPHOCYTES % (AUTO) 29.2 %; MEAN CORPUSCULAR HEMOGLOBIN 33.2 pg (27.0-31.0); MEAN CORPUSCULAR HGB CONC 33.2 g/dL (32.0-36.0); MEAN CORPUSCULAR VOLUME 99.7 fL (81.0-99.0); MEAN PLATELET VOLUME 9.1 fL (7.9-10.8); MONOCYTES # (AUTO) 0.8 10^3/uL (0.0-1.0); MONOCYTES % (AUTO) 10.6 %; NEUTROPHILS # (AUTO) 4.2 10^3/uL (1.5-6.6); NEUTROPHILS % (AUTO) 57.2 %; PLT - PLATELET COUNT 246 10^3/uL (130-450); RED BLOOD COUNT 3.89 10^6/uL (4.20-5.40); RED CELL DISTRIBUTION WIDTH 13.2 % (12.0-15.0); WHITE BLOOD COUNT 7.3 x10^3/uL (4.8-10.8)
[2019-10-30 20:56] LABS: MUDS CUTOFF CONCENTRATIONS CUTOFF CONC BELOW:
[2019-10-30 20:58] LABS: ACETAMINOPHEN < 10 ug/mL (10-30); ALBUMIN 4.5 g/dL (3.2-5.5); ALBUMIN/GLOBULIN RATIO 1.6 (1.0-2.2); ALKALINE PHOSPHATASE 99 IU/L (42-121); ALT ALANINE AMINOTRANSFERASE 22 IU/L (10-60); AST ASPARTATE AMINOTRANSFERASE 21 IU/L (10-42); BILIRUBIN,TOTAL 0.6 mg/dL (0.2-1.0); BUN - BLOOD UREA NITROGEN 13 mg/dL (6-20); CALCIUM 8.6 mg/dL (8.5-10.3); CARBON DIOXIDE - CO2 25 mmol/L (21-32); CHLORIDE 105 mmol/L (101-111); CREATININE 0.6 mg/dL (0.4-1.0); GLUCOSE 165 mg/dL (70-100); LIPASE 55 U/L (22-51); SALICYLATE < 6.0 mg/dL; SODIUM 147 mmol/L (135-145); TOTAL PROTEIN 7.3 g/dL (6.7-8.2)
--- NOTE | 2019-10-30 21:00 | CT Report ---
PROCEDURE: HEAD WO INDICATIONS: head inj TECHNIQUE: Noncontrast 4.5 mm thick angled axial sections acquired from the foramen magnum to the vertex. For r adiation dose reduction, the following was used: automated exposure control, adjustment of mA and/or kV according to patient size. COMPARISON: 03/12/2014. Correlation is made with cervical spine CT 10/30/2019. FINDINGS: Image quality: Diagnostic, with note made of motion artifact. CSF spaces: Basal cisterns are patent. No extra-axial fluid collections. Ventricles are normal in size and shape. Brain: No midline shift. No intracranial masses or hemorrhage. [place]-white matter interface is norm al. Skull and face: Soft tissue swelling is seen overlying the left zygoma, as on series 2 image 9. No u nderlying fractures are seen. Calvarium and visualized facial bones are intact, without suspicious le sions. Sinuses: Visualized sinuses and mastoids are clear. IMPRESSION: No significant intracranial abnormality is seen. Left cheek soft tissue swelling, without an associated fracture seen. Reviewed by: Miguel Bautista MD on 10/30/2019 7:59 PM AKDT Approved by: Miguel Bautista MD on 10/30/2019 7:59 PM AKDT Station ID: [id number]
--- NOTE | 2019-10-30 21:02 | CT Report ---
PROCEDURE: CERVICAL SPINE WO INDICATIONS: head inj TECHNIQUE: Noncontrast 3 mm thick sections acquired from the skull base to the T4 level. Sagittal and coronal r eformats were then constructed. For radiation dose reduction, the following was used: automated exp osure control, adjustment of mA and/or kV according to patient size. COMPARISON: 09/19/2015. Correlation is also made with the accompanying head CT 10/30/2019. FINDINGS: Image quality: Excellent. Bones: No fractures or dislocations. Visualized superior ribs are intact. Soft tissues: Prevertebral soft tissues are normal in thickness. No paravertebral hematomas. No ap ical pneumothoraces. IMPRESSION: Normal cervical spine CT, without fractures identified. Reviewed by: Miguel Bautista MD on 10/30/2019 8:00 PM JOHNATHON Approved by: Miguel Bautista MD on 10/30/2019 8:00 PM JOHNATHON Station ID: [id number]
[2019-10-30] MEDS ORDERED: TETANUS/DIPHTHERIA/PERTUSSIS 0.5 ML SYRINGE IM ONE (21:07)
[2019-10-30 21:09] LABS: AMPHETAMINE SCREEN,URINE NEGATIVE (NEGATIVE); BENZODIAZEPINES SCREEN, URINE NEGATIVE (NEGATIVE); COCAINE SCREEN URINE NEGATIVE (NEGATIVE); METHADONE SCREEN, URINE NEGATIVE (NEGATIVE); METHAMPHETAMINES SCREEN, URINE NEGATIVE (NEGATIVE); OPIATE SCREEN, URINE NEGATIVE (NEGATIVE); OXYCODONE SCREEN, URINE NEGATIVE (NEGATIVE); PROPOXYPHENE SCREEN, URINE NEGATIVE (NEGATIVE); TRICYCLIC ANTIDEPRESSANT,URINE NEGATIVE (NEGATIVE)
--- NOTE | 2019-10-31 02:57 | ED Physician Documentation ---
ED Addendum - Addendum Addendum: 10/31/19 02:56 After change of shift, the patient remained sleeping and resting comfortably. She got up to go to the bathroom on her own. She is able to converse well. She went back to rest again for a while. She got up to the bathroom again after couple more hours but stated she did not have a ride home. She will need to wait for the bus in the morning. She is pleasant and conversant and denies any self-harm ideation. We will discharge her from the ER as soon as she has a e stablished method home.
[2019-10-31 06:50] VITALS: BP 107/75
== END 2019-10-31 07:00 | disposition home or self-care (01) ==
LOC: EDUNIT# → ED 19:59
DX: S00.81XA Abrasion of other part of head, initial encounter (principal); W19.XXXA Unspecified fall, initial encounter; F10.121 Alcohol abuse with intoxication delirium
CPT/HCPCS: 36415; 70450; 72125; 80053; 80306; 80307; 80320; 80329; 83690; 85025; 90471; 90715; 96365; 99281; 99284; J3411; J7040

== ENCOUNTER 2020-05-29 00:12 | Outpatient (CLI) | payer MEDICAID | END 2020-05-29 00:13 | disposition critical access hospital (66) | LOC: EMS 00:12 | PROVIDERS: ATTEND Emergency Medicine | DX: R07.89 Other chest pain (principal); R05 Cough; F41.9 Anxiety disorder, unspecified; Z59.0 Homelessness | CPT/HCPCS: A0425; A0429; A0999 ==

== ENCOUNTER 2020-05-29 00:27 | Emergency (ER) | payer MEDICAID, OTHER ==
--- NOTE | 2020-05-29 01:12 | ED Physician Documentation ---
PD HPI CHEST PAIN - Stated complaint Stated Complaint: ANXIETY, CP - Chief complaint Chief Complaint: MHE - History obtained from History obtained from: Patient - History of Present Illness Timing - onset: How many hours ago (3) Timing - onset during: Rest (She awoke with a feeling of pressure and some pain in the left anterior chest while sleeping. No known injury. No cough. She felt slightly short of breath. She is feeling anxious. No known heart disease nor lung problems.) Timing - duration: Hours (3) Timing - details: Abrupt onset, Still present (decreasing) Quality: Pressure, Aching Location: Left chest Radiation: No: Neck, Back Worsened by: Movement. No: Inspiration Associated symptoms: Shortness of air. No: Nausea, Vomiting, Palpitations Similar symptoms before: Has not had sx before Recently seen: Not recently seen Review of Systems Constitutional: denies: Fever, Chills Nose: denies: Rhinorrhea / runny nose, Congestion Throat: denies: Sore throat Cardiac: reports: Chest pain / pressure (just this evening). 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 HEENT: None Psych: None Musculoskeletal: None Derm: None - Past Surgical History Past Surgical History: No - Present Medications Home Medications: Ambulatory Orders Medication Instructions Recorded Confirmed LORazepam [Ativan] 5 mg ORAL QPM 10/08/19 10/08/19 Ondansetron Odt [Zofran] 4 mg TL Q6H PRN #10 tablet 10/31/19 Naproxen Sodium [Anaprox Ds] 550 mg PO BID #15 tab 05/29/20 - Allergies Allergies/Adverse Reactions: Allergies Allergy/AdvReac Type Severity Reaction Status Date / Time cephalexin Allergy Hives Verified 10/30/19 20:04 clindamycin Allergy Hives Verified 10/30/19 20:04 Penicillins AdvReac Intermediate Hives Verified 10/30/19 20:04 Dairy Allergy Unknown Uncoded 10/30/19 20:04 - Social History Does the pt smoke?: No Smoking Status: Never smoker Does the pt drink ETOH?: No Does the pt have substance abuse?: No - Immunizations Immunizations are current?: Yes Immunizations: No immun - POLST Patient has POLST: No POLST Status: Full Code PD ED PE NORMAL - Vitals Vital signs reviewed: Yes - General General: Alert and oriented X 3 (but drowsy, sleepy. Rouses to voice and light tactile. Answers questions appropriately. ), No acute distress, Well developed/nourished - HEENT HEENT: Pharynx benign - Neck Neck: Supple, no meningeal sign, No adenopathy - Cardiac Cardiac: RRR, No murmur - Respiratory Respiratory: Clear bilaterally, Other (some local tenderness left sternal border without crepitance, deformity. No rash nor redness. ) - Abdomen Abdomen: Soft, Non tender - Derm Derm: Normal color, Warm and dry - Extremities Extremities: Normal ROM s pain, No edema, No calf tenderness / cord - Neuro Neuro: Alert and oriented X 3, No motor deficit, Normal speech Results - Vitals Vitals: Vital Signs - 24 hr 05/29/20 05/29/20 05/29/20 00:45 03:28 06:25 Temperature 36.6 C 36.6 C Heart Rate 91 88 70 Respiratory 16 16 16 Rate Blood Pressure 118/85 H 120/80 117/74 O2 Saturation 100 100 99 Oxygen O2 Source Room air - EKG (time done) 02:00 Rate: Rate (enter#) (74) Rhythm: NSR [place]: Normal Intervals: Normal OR QRS: Normal Ischemia: Normal ST segments. No: ST elevation c/w ischemia, ST depression - Labs Labs: Laboratory Tests 05/29/20 05/29/20 05/29/20 01:40 01:40 01:40 WBC 10.7 RBC 3.79 L Hgb 12.3 Hct 36.3 L MCV 95.8 MCH 32.5 H MCHC 33.9 RDW 12.7 Plt Count 279 MPV 9.0 Neut # (Auto) 7.5 H Lymph # (Auto) 1.9 [place] # (Auto) 1.0 Eos # (Auto) 0.2 Baso # (Auto) 0.1 Absolute Nucleated RBC 0.00 Nucleated RBC % 0.0 Sodium 136 Potassium 3.6 Chloride 105 Carbon Dioxide 20 L Anion Gap 11.0 BUN 26 H Creatinine 0.5 Estimated GFR (MDRD) 148 Glucose 104 H Calcium 8.6 Troponin I High Sens < 2.3 L - Rads (name of study) chest xray Radiology: Prelim report reviewed (no cardiopulmonary process), See rad report PD MEDICAL DECISION MAKING - ED course Complexity details: reviewed results, considered differential, d/w patient Departure - Departure Disposition: 01 Home, Self Care Clinical Impression: Chest pain, musculoskeletal Condition: Stable Record reviewed to determine appropriate education?: Yes Instructions: ED Chest Pain Costochondritis Prescriptions: Naproxen Sodium [Anaprox Ds] 550 mg PO BID #15 tab Comments: Your EKG, chest x-ray, blood tests are normal. No signs of heart or lung causes for the pain. Presume some musculoskeletal pain. I would suggest anti- inflammatory such as naproxen twice daily with food for the next week. To that add Tylenol every 4 hours if needed for pains. Follow-up with your primary care if not improved over the next several days and resolved within 5 to 7 days. Return if worsening symptoms or new symptoms develop. Discharge Date/Time: 05/29/20 06:48
[2020-05-29] MEDS ORDERED: ACETAMINOPHEN 325 MG TABLET PO STA (01:32)
[2020-05-29] MEDS ORDERED: IBUPROFEN 600 MG TABLET PO STA (01:32)
[2020-05-29 01:47] LABS: BASOPHILS # (AUTO) 0.1 10^3/uL (0.0-0.1); BASOPHILS % (AUTO) 0.9 %; EOSINOPHILS # (AUTO) 0.2 10^3/uL (0.0-0.7); HGB - HEMOGLOBIN 12.3 g/dL (12.0-16.0); LYMPHOCYTES # (AUTO) 1.9 10^3/uL (1.5-3.5); LYMPHOCYTES % (AUTO) 17.8 %; MEAN CORPUSCULAR HEMOGLOBIN 32.5 pg (27.0-31.0); MEAN CORPUSCULAR HGB CONC 33.9 g/dL (32.0-36.0); MEAN CORPUSCULAR VOLUME 95.8 fL (81.0-99.0); NEUTROPHILS # (AUTO) 7.5 10^3/uL (1.5-6.6); NEUTROPHILS % (AUTO) 70.1 %; PLT - PLATELET COUNT 279 10^3/uL (130-450); RED BLOOD COUNT 3.79 10^6/uL (4.20-5.40); RED CELL DISTRIBUTION WIDTH 12.7 % (12.0-15.0); WHITE BLOOD COUNT 10.7 x10^3/uL (4.8-10.8)
[2020-05-29 01:55] LABS: CALCIUM 8.6 mg/dL (8.5-10.3); CREATININE 0.5 mg/dL (0.4-1.0)
[2020-05-29 06:25] VITALS: BP 117/74
--- NOTE | 2020-05-29 08:21 | XRAY Report ---
PROCEDURE: Chest 1 View X-Ray INDICATIONS: chest pain TECHNIQUE: One view of the chest was acquired. COMPARISON: 10/08/19 FINDINGS: Surgical changes and devices: None. Lungs and pleura: No pleural effusions or pneumothorax. Lungs are clear. There are paired nodular o pacities projecting over the lung bases consistent with nipple shadows. Mediastinum: Mediastinal contours appear normal. Heart size is normal. Bones and chest wall: No suspicious bony lesions. Overlying soft tissues appear unremarkable. IMPRESSION: 1. No acute cardiopulmonary disease. Reviewed by: Ronald Billingsley MD on 05/29/2020 8:19 AM [facility] Approved by: Ronald Billingsley MD on 05/29/2020 8:19 AM [facility] Station ID: [id number]
== END 2020-05-29 06:48 | disposition home or self-care (01) ==
LOC: EDUNIT# → ED 00:27
DX: R07.89 Other chest pain (principal)
CPT/HCPCS: 36415; 71045; 80048; 84484; 85025; 93005; 99284; A9270

== ENCOUNTER 2020-06-05 19:31 | Outpatient (CLI) | payer MEDICAID | END 2020-06-05 19:32 | disposition critical access hospital (66) | LOC: EMS 19:31 | PROVIDERS: ATTEND Emergency Medicine | DX: F41.9 Anxiety disorder, unspecified (principal) | CPT/HCPCS: A0425; A0429; A0999 ==

== ENCOUNTER 2020-06-05 19:49 | Emergency (ER) | payer MEDICAID ==
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
[2020-06-06 01:27] VITALS: BP 109/74
== END 2020-06-06 01:25 | disposition home or self-care (01) ==
LOC: EDUNIT# → ED 19:49
DX: F41.9 Anxiety disorder, unspecified (principal); I10 Essential (primary) hypertension
CPT/HCPCS: 99283

== ENCOUNTER 2020-06-06 04:07 | Emergency (ER) | payer MEDICAID ==
--- NOTE | 2020-06-06 04:16 | ED Physician Documentation ---
History of Present Illness - Stated complaint Stated Complaint: CRAMPS - History obtained from History obtained from: Patient - History of Present Illness Timing: How many hours ago (1-2) Pain level now: 6 Improved by: nothing Worsened by: no exacerbating factors - Additonal information Additional information: patient returns to ED after having been discharged approximately 3 hours ago. patient says she was outside in the cold night and says she has hypothermia, abdominal cramping, and pain all over my body (per patient). she says these symptoms started subsequent to being discharged. Review of Systems Constitutional: reports: Myalgias. denies: Fever, Chills Cardiac: reports: Reviewed and negative Respiratory: reports: Reviewed and negative GI: reports: Abdominal Pain (cramping). 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 : None HEENT: None Psych: Anxiety, Post traumatic stress disorder Musculoskeletal: None Derm: None - Past Surgical History Past Surgical History: No - Present Medications Home Medications: Ambulatory Orders Medication Instructions Recorded Confirmed Escitalopram Oxalate 20 mg PO DAILY 06/05/20 06/05/20 Prazosin [Minipress] 1 mg PO DAILY 06/05/20 06/05/20 hydrOXYzine HCL [Hydroxyzine HCl] 25 mg PO TID 06/05/20 06/05/20 - Allergies Allergies/Adverse Reactions: Allergies Allergy/AdvReac Type Severity Reaction Status Date / Time cephalexin Allergy Hives Verified 06/05/20 19:50 clindamycin Allergy Hives Verified 06/05/20 19:50 Penicillins AdvReac Intermediate Hives Verified 06/05/20 19:50 Dairy Allergy Unknown Uncoded 06/05/20 19:50 - Social History Does the pt smoke?: No Smoking Status: Never smoker Does the pt drink ETOH?: No Does the pt have substance abuse?: No - Immunizations Immunizations are current?: Yes Immunizations: No immun - POLST Patient has POLST: No POLST Status: Full Code PD ED PE NORMAL - Vitals Vital signs reviewed: Yes - General General: Alert and oriented X 3, No acute distress, Well developed/nourished, Other (eating [employer]ez[employer] crackers in NAD) - HEENT HEENT: Moist mucous membranes - Neck Neck: Supple, no meningeal sign - Cardiac Cardiac: RRR, No murmur - Respiratory Respiratory: No respiratory distress, Clear bilaterally - Abdomen Abdomen: Normal bowel sounds, Soft, Non tender, Non distended - Derm Derm: Normal color, Warm and dry - Neuro Neuro: Alert and oriented X 3 PD ED PE EXPANDED - Psych Psych: Poor eye contact, Other (flat affect, seems indifferent during our discussions) Results - Vitals Vitals: Vital Signs - 24 hr 06/06/20 06/06/20 06/06/20 04:09 04:17 04:43 Temperature 36.3 C L 36.3 C L 36.3 C L Heart Rate 77 77 77 Respiratory 18 18 18 Rate Blood Pressure 116/85 H 116/85 H 116/85 H O2 Saturation 100 100 100 Oxygen O2 Source Room air PD MEDICAL DECISION MAKING - ED course Complexity details: considered differential, d/w patient ED course: NAD with nontender abdominal exam, eating crackers without difficulty. her temperature is not in hypothermic range (mild hypothermia range being 32-35 C). she again asks to be allowed to stay in the ED for an hour or two until the buses start running. I explained that the bus would be running within the next 30 minutes and she would be discharged now so that she can catch the bus. no emergent testing nor treatment indicated at this time. Departure - Departure Disposition: 01 Home, Self Care Clinical Impression: Generalized muscle ache Condition: Good Instructions: ED Muscle Aching Discharge Date/Time: 06/06/20 04:42
[2020-06-06 04:17] VITALS: BP 116/85
[2020-06-06] MEDS ORDERED: NAPROXEN 250 MG TABLET PO STA (04:35)
== END 2020-06-06 04:42 | disposition home or self-care (01) ==
LOC: ED 04:07
DX: M79.10 Myalgia, unspecified site (principal); F41.9 Anxiety disorder, unspecified; I10 Essential (primary) hypertension
CPT/HCPCS: 99282; A9270

== ENCOUNTER 2020-06-14 20:59 | Emergency (ER) | payer MEDICAID ==
--- NOTE | 2020-06-14 21:40 | ED Physician Documentation ---
History of Present Illness - Stated complaint Stated Complaint: RIB, LOWER BACK PX - Additonal information Additional information: 30-year-old female who is known to be homeless presents to the emergency department with a chief complaint of low back pain. She states that she has had back pain for a long time but it is worse than normal. She denies dysuria urgency or frequency. No saddle anesthesias no fevers. On presentation she is caring with her most of her belongings. She has no altered gait. denies drug use or alcohol use After initially examined the patient we discussed back pain management which may include ibuprofen or Toradol however she declined this. I did ask patient to provide a urine sample to rule out urinary tract infection however patient reported to me that she forgot to provide the sample when she went to the bathroom. When I went back to the room to discuss the patient I asked her what she felt the emergency department could do for her tonight and she requested boarding overnight. I discussed with her that the emergency department was not a place where she could come to stay overnight. I asked her where she would go when she left the emergency department and she reported that she was going to call family or friends so that she could stay with them. She has in her possession a cell phone that is connected to a battery pack and all of her possessions with her she does appear reasonably well groomed clean and has appropriate clothing for the weather. 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 HEENT: None Psych: Anxiety, Post traumatic stress disorder Musculoskeletal: None Derm: None - Past Surgical History Past Surgical History: No - Present Medications Home Medications: Ambulatory Orders Medication Instructions Recorded Confirmed Escitalopram Oxalate 20 mg PO DAILY 06/05/20 06/14/20 Prazosin [Minipress] 1 mg PO DAILY 06/05/20 06/14/20 hydrOXYzine HCL [Hydroxyzine HCl] 25 mg PO TID 06/05/20 06/14/20 - Allergies Allergies/Adverse Reactions: Allergies Allergy/AdvReac Type Severity Reaction Status Date / Time cephalexin Allergy Hives Verified 06/05/20 19:50 clindamycin Allergy Hives Verified 06/05/20 19:50 Penicillins AdvReac Intermediate Hives Verified 06/05/20 19:50 Dairy Allergy Unknown Uncoded 06/05/20 19:50 - Social History Does the pt smoke?: No Smoking Status: Never smoker Does the pt drink ETOH?: No Does the pt have substance abuse?: No - Immunizations Immunizations are current?: Yes Immunizations: No immun - POLST Patient has POLST: No POLST Status: Full Code PD ED PE EXPANDED - General General: Alert, No acute distress - Neck Neck: Supple w/out meningeal sx. No: Adenopathy - Cardiac Cardiac: Regular Rate, Tachy, Radial strong equal, Cap refill < 2 sec. No: Murmur Present - Respiratory Respiratory: Clear to ausultation keli, Distress - Abdomen Abdomen: Normal Bowel sounds. No: Tender to palpation - Back Back: Other (No midline spinous process tenderness elicited. Normal gait. Motor strength 5 of 5 bilateral lower extremities. Patient able to bend over fully and touch her toes.). No: Vertebral tenderness, Soft tissue tenderness - Neuro Neuro: Alert and Oriented X 3, CNII-XII intact - GCS Eye Opening: Spontaneous Motor: Obeys Commands Verbal: Oriented Total: 15 Results - Vitals Vitals: Vital Signs - 24 hr 06/14/20 06/14/20 06/14/20 21:03 21:07 21:23 Temperature 36 C L 36 C L 36.1 C L Heart Rate 120 H 99 110 H Respiratory 24 24 118 H Rate Blood Pressure 113/67 113/67 115/68 O2 Saturation 98 98 100 Oxygen O2 Source Room air PD MEDICAL DECISION MAKING - ED course Complexity details: reviewed results, re-evaluated patient, considered different ial, d/w patient ED course: This is a 30-year-old female who presents to the emergency department at about 9 PM requesting evaluation for back pain. When we discussed back pain management options to include ibuprofen she declined that. Upon further questioning she did admit that she was here seeking residential and food to board overnight. We discussed that it was not feasible to board patients overnight in the emergency department she understood this and stated that she was then going to call friends or family. She is dressed appropriately for the emergency department and the weather. She has the capacity to make these decisions. She has no red flags on back pain. It should be noted that she did initially present as tachycardic however after resting in the ER for 10 to 15 minutes and on reexam she was no longer tachycardic. Departure - Departure Disposition: 01 Home, Self Care Clinical Impression: Homeless, Homeless single person Back pain Qualifiers: Back pain location: low back pain Chronicity: unspecified Back pain laterality: unspecified Sciatica presence: without sciatica Qualified Code(s): M54.5 - Low back pain Comments: Migdalia if you develop pain when you pee, have weakness in your legs cannot control your bowel or bladder function then please return immediately to the emergency department.
[2020-06-14 21:57] VITALS: BP 121/70
== END 2020-06-14 21:59 | disposition home or self-care (01) ==
LOC: ED 20:59
DX: M54.5 Low back pain (principal); I10 Essential (primary) hypertension; Z59.0 Homelessness
CPT/HCPCS: 99281; 99284

== ENCOUNTER 2020-08-12 20:10 | Emergency (ER) | payer MEDICAID ==
--- OUTSIDE RECORDS SUMMARY | 2020-08-12 20:12 | EXTERNAL MEDICAL SUMMARY RPT | Continuity of Care Document ---
:1990 Demographics Phone Unavailable Preferred Language Unknown Marital Status Unknown Advent Affiliation Unknown Race Unknown Ethnic Group Unknown Author Organization [place] Address [address] [phone] Phone Social History date description facility [phone]
--- OUTSIDE RECORDS SUMMARY | 2020-08-12 20:23 | EXTERNAL MEDICAL SUMMARY RPT | Continuity of Care Document ---
:1990 Demographics Phone Unavailable Preferred Language Unknown Marital Status Unknown Gnosticism Affiliation Unknown Race Unknown Ethnic Group Unknown Author Organization [place] Address [address] [place] [address] Phone Social History date description facility [phone]
== END 2020-08-12 20:19 | disposition left against medical advice (07) ==
LOC: ED 20:10
DX: Z53.21 Procedure and treatment not carried out due to patient leaving prior to being seen by health care provider (principal)

== ENCOUNTER 2020-08-22 16:18 | Outpatient (CLI) | payer MEDICAID | END 2020-08-22 16:19 | disposition critical access hospital (66) | LOC: EMS 16:18 | DX: R10.9 Unspecified abdominal pain (principal) | CPT/HCPCS: A0425; A0429 ==

== ENCOUNTER 2020-08-22 17:23 | Emergency (ER) | payer MEDICAID | END 2020-08-22 17:55 | disposition left against medical advice (07) | LOC: ED 17:23 | DX: Z53.21 Procedure and treatment not carried out due to patient leaving prior to being seen by health care provider (principal) ==

== ENCOUNTER 2020-08-22 18:08 | Emergency (ER) | payer MEDICAID ==
--- NOTE | 2020-08-22 18:31 | ED Physician Documentation ---
History of Present Illness - Stated complaint Stated Complaint: MHE - History obtained from History obtained from: Patient - Additonal information Additional information: 30-year-old woman with history of anxiety presents with odd behavior and complaints of lower abdominal pain. States to me that she has lower abdominal pain that started today associated with nausea but no changes in her bowel movements. She denies history of abdominal surgeries. She vacillates on the possibility of . Note made that this is her second visit today, the first she walked out during triage after acting odd and she did something similar about 10 days ago. She has a history of some alcohol issues, homelessness. History is somewhat limited because the patient has odd affect and does not answer many questions. 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 HEENT: None Psych: Anxiety, Post traumatic stress disorder Musculoskeletal: None Derm: None - Past Surgical History Past Surgical History: No - Present Medications Home Medications: Ambulatory Orders Medication Instructions Recorded Confirmed Escitalopram Oxalate 20 mg PO DAILY 06/05/20 06/14/20 Prazosin [Minipress] 1 mg PO DAILY 06/05/20 06/14/20 hydrOXYzine HCL [Hydroxyzine HCl] 25 mg PO TID 06/05/20 06/14/20 - Allergies Allergies/Adverse Reactions: Allergies Allergy/AdvReac Type Severity Reaction Status Date / Time cephalexin Allergy Hives Verified 08/22/20 18:32 clindamycin Allergy Hives Verified 08/22/20 18:32 Penicillins AdvReac Intermediate Hives Verified 08/22/20 18:32 Dairy Allergy Unknown Uncoded 08/22/20 18:32 - Social History Does the pt smoke?: No Smoking Status: Never smoker Does the pt drink ETOH?: No Does the pt have substance abuse?: No - Immunizations Immunizations are current?: Yes Immunizations: No immun - POLST Patient has POLST: No POLST Status: Full Code PD ED PE NORMAL - Vitals Vital signs reviewed: Yes - General General: Other (She is disheveled but in no distress, pacing around the room, poor eye contact. She is generally cooperative but not consistently.) - HEENT HEENT: PERRL, EOMI - Neck Neck: Supple, no meningeal sign, No bony TTP - Cardiac Cardiac: RRR, No murmur - Respiratory Respiratory: No respiratory distress, Clear bilaterally - Abdomen Abdomen: Normal bowel sounds, Soft, Non tender - Back Back: No CVA TTP, No spinal TTP - Derm Derm: Normal color, Warm and dry - Extremities Extremities: No edema, No calf tenderness / cord - Psych Psych: Other (Odd flattened affect) Results - Vitals Vitals: Vital Signs - 24 hr 08/22/20 18:28 Temperature 36.8 C Heart Rate 70 Respiratory 18 Rate Blood Pressure 116/78 O2 Saturation 100 Oxygen O2 Source Room air PD MEDICAL DECISION MAKING - ED course ED course: 30-year-old woman with odd affect presents with lower abdominal pain. She subsequently eloped declining further work-up. Departure - Departure Disposition: 01 Home, Self Care Clinical Impression: Psychiatric symptoms Condition: Stable Discharge Date/Time: 08/22/20 19:38
[2020-08-22 18:42] VITALS: BP 116/78
== END 2020-08-22 19:38 | disposition home or self-care (01) ==
LOC: ED 18:08
DX: R41.82 Altered mental status, unspecified (principal); I10 Essential (primary) hypertension
CPT/HCPCS: 80053; 80307; 80320; 80329; 83690; 84443; 85025; 99281; 99283

== ENCOUNTER 2021-02-05 20:05 | Outpatient (CLI) | payer MEDICAID | END 2021-02-05 20:06 | disposition critical access hospital (66) | LOC: EMS 20:05 | DX: R46.89 Other symptoms and signs involving appearance and behavior (principal) | CPT/HCPCS: A0425; A0429; A0999 ==

== ENCOUNTER 2021-02-05 20:25 | Emergency (ER) | payer OTHER, MEDICAID ==
--- NOTE | 2021-02-05 20:34 | ED Physician Documentation ---
PD HPI MHE - Stated complaint Stated Complaint: MHE - History obtained from History obtained from: Patient, EMS - Additional information Additional information: 30-year-old woman with known history of anxiety, bipolar disorder and alcohol us e disorder was arrested on an outstanding warrant after she was walking in the road. Reportedly per police she was initially calm and cooperative but once they told her she was under arrest and they went to put handcuffs on she completely went berserk. Since then has been alternating between playing possum and verbal outbursts. 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 HEENT: None Psych: Anxiety, Post traumatic stress disorder Musculoskeletal: None Derm: None - Past Surgical History Past Surgical History: No - Present Medications Home Medications: Ambulatory Orders Medication Instructions Recorded Confirmed Escitalopram Oxalate 20 mg PO DAILY 06/05/20 06/14/20 Prazosin [Minipress] 1 mg PO DAILY 06/05/20 06/14/20 hydrOXYzine HCL [Hydroxyzine HCl] 25 mg PO TID 06/05/20 06/14/20 - Allergies Allergies/Adverse Reactions: Allergies Allergy/AdvReac Type Severity Reaction Status Date / Time cephalexin Allergy Hives Verified 02/05/21 20:35 clindamycin Allergy Hives Verified 02/05/21 20:35 Penicillins AdvReac Intermediate Hives Verified 02/05/21 20:35 Dairy Allergy Unknown Uncoded 08/22/20 18:32 - Social History Does the pt smoke?: No Smoking Status: Never smoker Does the pt drink ETOH?: No Does the pt have substance abuse?: No - Immunizations Immunizations are current?: Yes Immunizations: No immun - POLST Patient has POLST: No POLST Status: Full Code PD ED PE NORMAL - Vitals Vital signs reviewed: Yes - General General: Other (At times she is playing possum but responds to painful stimuli, at other times she is yelling profanities. Seems to rapidly cycle between the 2.) - HEENT HEENT: PERRL, EOMI - Neck Neck: Supple, no meningeal sign, No bony TTP - Cardiac Cardiac: RRR, No murmur - Respiratory Respiratory: No respiratory distress, Clear bilaterally - Abdomen Abdomen: Normal bowel sounds, Soft, Non tender - Back Back: No CVA TTP, No spinal TTP - Derm Derm: Normal color, Warm and dry - Extremities Extremities: No edema, No calf tenderness / cord - Neuro Eye Opening: Spontaneous Motor: Withdraws to Pain Results - Vitals Vitals: Vital Signs - 24 hr 02/05/21 02/05/21 20:31 20:40 Temperature 36.9 C Heart Rate 100 Respiratory 15 16 Rate Blood Pressure 112/82 H O2 Saturation 99 Oxygen O2 Source Room air PD MEDICAL DECISION MAKING - ED course ED course: 30-year-old woman who is playing possum after having a panic attack after being arrested. Given the rapid cycling between this this is consistent with psychiatric illness. She is under arrest and state highway police officer asked us to fill out a fit for confinement form. Given the history and physical there is no medical diagnosis that precludes her from being incarcerated, I did leave a voicemail for the [facility] nurse practitioner that she may need observation for alcohol withdrawal and psychiatric treatment while incarcerated. She was able to ambulate to the bathroom here without assistance. Departure - Departure Disposition: 01 Home, Self Care Clinical Impression: Alcohol intoxication Qualifiers: Complication of substance-induced condition: uncomplicated Qualified Code(s): F10.920 - Alcohol use, unspecified with intoxication, uncomplicated Bipolar affective disorder Qualifiers: Active/Remission status: currently active Current bipolar episode type: mixed Current episode severity: severe Psychotic features: with psychotic features Qualified Code(s): F31.64 - Bipolar disorder, current episode mixed, severe, with psychotic features Condition: Good Record reviewed to determine appropriate education?: Yes Instructions: ED Manic Depression, ED Alcohol Intoxication Comments: Needs observation in [facility] for alcohol withdrawal precautions and would benefit from mental health care.
[2021-02-05 20:35] VITALS: BP 112/82
== END 2021-02-05 20:48 | disposition home or self-care (01) ==
LOC: EDUNIT# → ED 20:25
DX: Z02.89 Encounter for other administrative examinations (principal); F31.64 Bipolar disorder, current episode mixed, severe, with psychotic features; F10.920 Alcohol use, unspecified with intoxication, uncomplicated; I10 Essential (primary) hypertension
CPT/HCPCS: 99281; 99283

== ENCOUNTER 2021-08-14 12:34 | Outpatient (CLI) | payer MEDICAID | END 2021-08-14 12:35 | disposition critical access hospital (66) | LOC: EMS 12:34 | DX: R11.0 Nausea (principal); R45.1 Restlessness and agitation | CPT/HCPCS: A0425; A0429 ==

== ENCOUNTER 2021-08-14 12:53 | Emergency (ER) | payer MEDICAID ==
[2021-08-14] MEDS ORDERED: SODIUM CHLORIDE 0.9% 1,000 ML IV STA (13:03)
[2021-08-14] MEDS ORDERED: ONDANSETRON 4 MG/2 ML VIAL IVP STA (13:03)
--- NOTE | 2021-08-14 13:08 | ED Physician Documentation ---
PD HPI NVD - Stated complaint Stated Complaint: NV/ABD PX - Chief complaint Chief Complaint: Abd Pain - History obtained from History obtained from: Patient, EMS - Additonal information Additional information: The patient is brought to the emergency department by EMS for chief complaint of abdominal pain and vomiting. She states it started early this morning and that she has had pain in her left lower quadrant. She was feeling fine yesterday. No dysuria. No vaginal symptoms. No fevers or chills. The patient has a history of a variety of visits for abdominal pain and vomiting previously. She is homeless and has a history of bipolar disorder and anxiety. Medics state that the patient did not answer any questions for them in route, but did become very emotionally distraught when they initially told her her boyfriend could not come along. No other complaints at this time. Patient states she has vomited multiple times over the last 12 hours. Review of Systems Ten Systems: 10 systems reviewed and negative Constitutional: reports: Reviewed and negative. denies: Fever, Chills Eyes: reports: Reviewed and negative Ears: reports: Reviewed and negative Nose: reports: Reviewed and negative Throat: reports: Reviewed and negative Cardiac: reports: Reviewed and negative Respiratory: reports: Reviewed and negative GI: reports: Abdominal Pain, Nausea, Vomiting. 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 : None HEENT: None Psych: Anxiety, Post traumatic stress disorder Musculoskeletal: None Derm: None - Past Surgical History Past Surgical History: No - Present Medications Home Medications: Ambulatory Orders Medication Instructions Recorded Confirmed Escitalopram Oxalate 20 mg PO DAILY 06/05/20 06/14/20 Prazosin [Minipress] 1 mg PO DAILY 06/05/20 06/14/20 hydrOXYzine HCL [Hydroxyzine HCl] 25 mg PO TID 06/05/20 06/14/20 Ondansetron Odt [Zofran] 4 mg TL Q6H PRN #10 tablet 08/14/21 - Allergies Allergies/Adverse Reactions: Allergies Allergy/AdvReac Type Severity Reaction Status Date / Time cephalexin Allergy Hives Verified 02/05/21 20:35 clindamycin Allergy Hives Verified 02/05/21 20:35 Penicillins AdvReac Intermediate Hives Verified 02/05/21 20:35 Dairy Allergy Unknown Uncoded 08/22/20 18:32 - Social History Does the pt smoke?: No Smoking Status: Never smoker Does the pt drink ETOH?: No Does the pt have substance abuse?: No - Immunizations Immunizations are current?: Yes Immunizations: No immun - POLST Patient has POLST: No POLST Status: Full Code PD ED PE NORMAL - Vitals Vital signs reviewed: Yes - General General: Alert and oriented X 3, No acute distress, Well developed/nourished - HEENT HEENT: Atraumatic, PERRL, EOMI, Moist mucous membranes - Neck Neck: Supple, no meningeal sign - Cardiac Cardiac: RRR, No murmur, Strong equal pulses - Respiratory Respiratory: No respiratory distress, Clear bilaterally - Abdomen Abdomen: Soft, Non distended, Other (Moderate left lower quadrant tenderness, no rebound or guarding.) - Derm Derm: Warm and dry - Extremities Extremities: No deformity - Neuro Neuro: Alert and oriented X 3 - Psych Psych: Normal mood, Normal affect Results - Vitals Vitals: Vital Signs - 24 hr 08/14/21 08/14/21 13:01 14:43 Temperature 36.6 C Heart Rate 81 86 Respiratory 16 16 Rate Blood Pressure 134/81 H 124/88 H O2 Saturation 100 100 Oxygen O2 Source Room air - Labs Labs: Laboratory Tests 08/14/21 08/14/21 08/14/21 13:15 13:15 13:15 WBC 10.8 RBC 4.70 Hgb 14.0 Hct 42.1 MCV 89.6 MCH 29.8 MCHC 33.3 RDW 13.4 Plt Count 328 MPV 9.4 Neut # (Auto) 9.1 H Lymph # (Auto) 1.1 L Grant # (Auto) 0.5 Eos # (Auto) 0.0 Baso # (Auto) 0.1 Absolute Nucleated RBC 0.00 Nucleated RBC % 0.0 Sodium 137 Potassium 3.3 L Chloride 96 L Carbon Dioxide 25 Anion Gap 16.0 H BUN 17 Creatinine 0.7 Estimated GFR (MDRD) 99 Glucose 82 Calcium 10.0 Total Bilirubin 0.8 AST 29 ALT 20 Alkaline Phosphatase 61 Total Protein 8.7 H Albumin 5.2 Globulin 3.5 Albumin/Globulin Ratio 1.5 Lipase 35 Serum HCG, Qual NEGATIVE PD MEDICAL DECISION MAKING - ED course Complexity details: reviewed old records, reviewed results, re-evaluated patient, considered differential, d/w patient ED course: The patient was worked up with labs and urinalysis and given a 1 L bolus Of 0.9 normal saline and Zofran. Her labs were unremarkable. The patient expressed a wish to go to a detox facility and boyfriend had already called to start the process of patient getting into [facility]. She was ultimately accepted there and was discharged with transportation straight there. I have given her prescription for Zofran. We discussed the usual indications for return. Departure - Departure Disposition: 01 Home, Self Care Clinical Impression: Substance abuse Vomiting Qualifiers: Vomiting type: bilious vomiting Nausea presence: with nausea Qualified Code(s): R11.14 - Bilious vomiting Condition: Stable Instructions: ED Nausea Vomiting Prescriptions: Ondansetron Odt [Zofran] 4 mg TL Q6H PRN #10 tablet PRN Reason: Nausea / Vomiting Comments: Please go straight to [facility]. Take the nausea medication as needed. Discharge Date/Time: 08/14/21 14:58
[2021-08-14 13:26] LABS: BASOPHILS # (AUTO) 0.1 10^3/uL (0.0-0.1); BASOPHILS % (AUTO) 0.7 %; EOSINOPHILS % (AUTO) 0.1 %; HCT - HEMATOCRIT 42.1 % (37.0-47.0); LYMPHOCYTES # (AUTO) 1.1 10^3/uL (1.5-3.5); LYMPHOCYTES % (AUTO) 10.3 %; MEAN CORPUSCULAR HEMOGLOBIN 29.8 pg (27.0-31.0); MEAN CORPUSCULAR HGB CONC 33.3 g/dL (32.0-36.0); MEAN CORPUSCULAR VOLUME 89.6 fL (81.0-99.0); MEAN PLATELET VOLUME 9.4 fL (7.9-10.8); MONOCYTES # (AUTO) 0.5 10^3/uL (0.0-1.0); MONOCYTES % (AUTO) 4.7 %; NEUTROPHILS # (AUTO) 9.1 10^3/uL (1.5-6.6); NEUTROPHILS % (AUTO) 84.1 %; PLT - PLATELET COUNT 328 10^3/uL (130-450); RED CELL DISTRIBUTION WIDTH 13.4 % (12.0-15.0); WHITE BLOOD COUNT 10.8 x10^3/uL (4.8-10.8)
[2021-08-14 13:44] LABS: ALBUMIN 5.2 g/dL (3.2-5.5); ALBUMIN/GLOBULIN RATIO 1.5 (1.0-2.2); BILIRUBIN,TOTAL 0.8 mg/dL (0.2-1.0); CREATININE 0.7 mg/dL (0.4-1.0); POTASSIUM 3.3 mmol/L (3.5-5.0); TOTAL PROTEIN 8.7 g/dL (6.7-8.2)
[2021-08-14 13:56] LABS: HCG,QUALITATIVE BLOOD NEGATIVE
[2021-08-14 14:47] VITALS: BP 124/88
== END 2021-08-14 14:58 | disposition home or self-care (01) ==
LOC: EDUNIT# → ED 12:53
DX: F19.10 Other psychoactive substance abuse, uncomplicated (principal); R11.2 Nausea with vomiting, unspecified; I10 Essential (primary) hypertension
CPT/HCPCS: 36415; 80053; 83690; 84703; 85025; 96374; 99283

== ENCOUNTER 2021-09-02 14:11 | Outpatient (CLI) | payer MEDICAID | END 2021-09-02 14:12 | disposition critical access hospital (66) | LOC: EMS 14:11 | DX: R07.81 Pleurodynia (principal); R06.00 Dyspnea, unspecified; W19.XXXA Unspecified fall, initial encounter; Y92.832 Beach as the place of occurrence of the external cause | CPT/HCPCS: A0425; A0429; A0999 ==

== ENCOUNTER 2021-09-02 14:32 | Emergency (ER) | payer MEDICAID ==
--- NOTE | 2021-09-02 14:54 | ED Physician Documentation ---
PD HPI ABD PAIN - Stated complaint Stated Complaint: FALL - Chief complaint Chief Complaint: Abd Pain - History obtained from History obtained from: Patient, EMS - History of Present Illness Timing - onset: Yesterday Timing - duration: Days (1) Timing - details: Abrupt onset, Still present Quality: Sharp, Pain Location: All over / everywhere Radiation: Chest Improved by: Laying still Worsened by: Moving, Breathing, Position, Palpation Associated symptoms: No: Nausea, Vomiting, Diarrhea Similar symptoms before: Diagnosis Recently seen: Not recently seen - Additional information Additional information: 31-year-old female with a history of bipolar disorder and anxiety presents to the emergency department today after [place] fall on the beach yesterday landing flat on her abdomen and chest. She states that she made rigorous love to her following that and he went deep. She is uncertain what caused her abdominal pain but she has developed abdominal pain yesterday and this is radiated into her back on the right side and she is having some difficulty breathing. Review of Systems Constitutional: denies: Fever Eyes: denies: Decreased vision Ears: denies: Ear pain Nose: denies: Rhinorrhea / runny nose, Congestion Throat: denies: Sore throat Cardiac: reports: Chest pain / pressure. denies: Palpitations Respiratory: reports: Dyspnea. denies: Cough GI: reports: Abdominal Pain, Nausea. 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 HEENT: None Psych: Anxiety, Post traumatic stress disorder Musculoskeletal: None Derm: None - Past Surgical History Past Surgical History: No - Present Medications Home Medications: Ambulatory Orders Medication Instructions Recorded Confirmed Escitalopram Oxalate 20 mg PO DAILY 06/05/20 06/14/20 Prazosin [Minipress] 1 mg PO DAILY 06/05/20 06/14/20 hydrOXYzine HCL [Hydroxyzine HCl] 25 mg PO TID 06/05/20 06/14/20 Ondansetron Odt [Zofran] 4 mg TL Q6H PRN #10 tablet 08/14/21 Sulfamethox/Trimeth 800/160 1 each PO BID #10 tablet 09/02/21 [Bactrim Ds] - Allergies Allergies/Adverse Reactions: Allergies Allergy/AdvReac Type Severity Reaction Status Date / Time cephalexin Allergy Hives Verified 02/05/21 20:35 clindamycin Allergy Hives Verified 02/05/21 20:35 Penicillins AdvReac Intermediate Hives Verified 02/05/21 20:35 Dairy Allergy Unknown Uncoded 08/22/20 18:32 - Social History Does the pt smoke?: No Smoking Status: Never smoker Does the pt drink ETOH?: No Does the pt have substance abuse?: No - Immunizations Immunizations are current?: Yes Immunizations: No immun - POLST Patient has POLST: No POLST Status: Full Code PD ED PE NORMAL - Vitals Vital signs reviewed: Yes (Low-grade temperature elevation) - General General: Alert and oriented X 3, Well developed/nourished, Other (The patient is exhibiting hysterical pain behavior periodically and at other times appears comfortable and falls asleep.) - HEENT HEENT: Atraumatic, PERRL, EOMI - Neck Neck: Supple, no meningeal sign, No bony TTP - Cardiac Cardiac: RRR, No murmur - Respiratory Respiratory: No respiratory distress, Clear bilaterally, Other (Tenderness to the chest wall patient does not allow examination.) - Abdomen Abdomen: Non distended, No organomegaly, Other (The abdomen is generally tender and there is general guarding.) - Back Back: No CVA TTP, No spinal TTP - Derm Derm: Normal color, Warm and dry, No rash - Extremities Extremities: No deformity, No edema - Neuro Neuro: Alert and oriented X 3, mosaic 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, No motor deficit, No sensory deficit, Normal speech Eye Opening: Spontaneous Motor: Obeys Commands Verbal: Oriented GCS Score: 15 - Psych Psych: Normal mood, Normal affect Results - Vitals Vitals: Vital Signs - 24 hr 09/02/21 09/02/21 14:40 18:03 Temperature 37.7 C Heart Rate 94 77 Respiratory 18 16 Rate Blood Pressure 110/68 95/58 L O2 Saturation 97 98 Oxygen O2 Source Room air - Labs Labs: Laboratory Tests 09/02/21 16:00 Urine Color YELLOW Urine Clarity HAZY Urine pH 6.5 Ur Specific [place] 1.010 Urine Protein NEGATIVE Urine Glucose (UA) NEGATIVE Urine Ketones NEGATIVE Urine Occult Blood LARGE H Urine Nitrite NEGATIVE Urine Bilirubin NEGATIVE Urine Urobilinogen 0.2 (NORMAL) Ur Leukocyte Esterase LARGE H Urine RBC 11-25 H Urine WBC >25 H Ur Squamous Epith Cells NONE SEEN Urine Bacteria Few Ur Microscopic Review INDICATED Urine Culture Comments INDICATED Urine HCG, Qual NEGATIVE - Rads (name of study) CT ab/pel w Radiology: Prelim report reviewed (Impression: No acute traumatic injury. Large amount of stool seen throughout the colon concerning for constipation.), EMP read indepedently, See rad report CT chest w Radiology: Prelim report reviewed (Impression: No acute traumatic injury.), EMP read indepedently, See rad report PD MEDICAL DECISION MAKING - ED course Complexity details: reviewed old records, reviewed results, re-evaluated patient, considered differential, d/w patient, d/w family ED course: 31-year-old female history of bipolar disorder presents to the emergency department today with hysterical pain behavior related to a fall on the beach yesterday. She is found to have urinary tract infection on work-up and on initial evaluation she appears to have a rigid abdomen and a CT scan of the abdomen pelvis and chest are undertaken for further evaluation. The scan shows marked stool retention and is the likely explanation for the patient having severe intolerable pain that is not always present. She got a lot of eye rolling in the ed with the pain behavior and periods of quiet. She held us hostage to get the CT scan and requested pain medication. She was administered IV toradal with improvement but was able to complete the scan before the medication could take effect. I re-examined the patient after the scan and I cannot make out flank tenderness on exam. She admits to urinary symptoms of frequency and dysuria and we will treat with septra. She is given a dose of MOM here in the Ed. Departure - Departure Disposition: 01 Home, Self Care Clinical Impression: Urinary tract infection Qualifiers: Urinary tract infection type: acute cystitis Hematuria presence: with hematuria Qualified Code(s): N30.01 - Acute cystitis with hematuria Constipation Qualifiers: Constipation type: unspecified constipation type Qualified Code(s): K59.00 - Constipation, unspecified Condition: Stable Instructions: ED Constipation, ED UTI Cystitis Female Follow-Up: [facility] [place] [Provider Group] Prescriptions: Sulfamethox/Trimeth 800/160 [Bactrim Ds] 1 each PO BID #10 tablet Comments: Trisha today it looks like the pain you are having in your abdomen is related to significant constipation as seen on the CAT scan. With this level of constipation there will be important to retrain your colon after you have relieve the the constipation. The recommendation is to use MiraLAX on a regular basis for at least 2 weeks. Today we have given you a dose of milk of magnesia in the emergency department and if you do not have results from this within 6 hours take a second dose. There is evidence of urinary tract infection and you have symptoms and treatment as indicated. A prescription for sulfamethoxazole trimethoprim has been E scribed to [facility] in [place]. Discharge Date/Time: 09/02/21 18:06
[2021-09-02] MEDS ORDERED: IOVERSOL 320 100 ML VIAL IVP ONE ×2 (15:22→20:04)
[2021-09-02 16:09] LABS: BILIRUBIN,URINE NEGATIVE (NEGATIVE); CLARITY,URINE HAZY (CLEAR); GLUCOSE, URINE (UA) NEGATIVE (NEGATIVE); KETONES,URINE (UA) NEGATIVE (NEGATIVE); LEUKOCYTE ESTERASE, URINE LARGE (NEGATIVE); NITRITE,URINE NEGATIVE (NEGATIVE); OCCULT BLOOD,URINE LARGE (NEGATIVE); PH,URINE 6.5 PH (5.0-7.5); PROTEIN,URINE NEGATIVE (NEGATIVE); UROBILINOGEN,URINE 0.2 (NORMAL) E.U./dL (NORMAL)
[2021-09-02 16:12] LABS: HCG UR QUAL NEGATIVE
[2021-09-02 16:27] LABS: BACTERIA,URINE Few /HPF (None Seen); SQUAMOUS EPITHELIAL CELL,UR NONE SEEN (<= Few); WBC,URINE >25 /HPF (0-5)
[2021-09-02] MEDS ORDERED: KETOROLAC 30 MG/ML VIAL IVP STA (16:34)
[2021-09-02] MEDS ORDERED: MAGNESIUM HYDROXIDE 2,400 MG/30 ML UDC PO STA (17:14)
--- NOTE | 2021-09-02 17:55 | CT Report ---
PROCEDURE: Abdomen/Pelvis W INDICATIONS: trauma to abdomen rigid general pain CONTRAST: IV CONTRAST: Optiray 320 ml: 100 PO CONTRAST: *NO PO CONTRAST TECHNIQUE: After the administration of IV contrast, 5 mm thick sections acquired from the diaphragms to the symp hysis. 5 mm thick coronal and sagittal reformats were acquired. For radiation dose reduction, the f ollowing was used: automated exposure control, adjustment of mA and/or kV according to patient size. COMPARISON: None. FINDINGS: Image quality: Excellent. ABDOMEN: Lung bases: Lung bases are clear. Heart size is normal. Solid organs: Liver and spleen are normal in size and enhancement. Gallbladder is within normal yung its. Biliary system is non dilated. Pancreas enhances normally. No adrenal nodules. Kidneys demon strate normal size and enhancement, without hydronephrosis. Peritoneum and bowel: Bowel loops demonstrate normal wall thickness and caliber. Large amount of sto ol noted in the colon. No free fluid or air. Nodes and vessels: No retroperitoneal or mesenteric adenopathy by size criteria. Aorta and inferior vena cava are normal in size. Miscellaneous: No ventral hernias. PELVIS: Genitourinary: Bladder wall thickness is normal. Miscellaneous: No inguinal hernias or adenopathy. Bones: No suspicious bony lesions. No vertebral body compression fractures. IMPRESSION: No acute traumatic injury. Large amount of stool seen throughout the colon concerning for constipation. Reviewed by: Velma Diaz MD, PhD on 09/02/2021 5:53 PM PDT Approved by: Velma Diaz MD, PhD on 09/02/2021 5:53 PM PDT Station ID: [id number]
--- NOTE | 2021-09-02 17:58 | CT Report ---
PROCEDURE: CHEST W INDICATIONS: trauma to abdomen CONTRAST: IV CONTRAST: Optiray 320 ml: 100 PO CONTRAST: *NO PO CONTRAST TECHNIQUE: After the administration of intravenous contrast, 1 mm axial images were acquired from the pulmonary apices through the posterior costophrenic angles. Axial 5 mm soft tissue kernel reconstructions were performed as well as 8 mm axial MIP and coronal and sagittal 5 mm reformations. For radiation dose reduction, the following was used: automated exposure control, adjustment of mA and/or kV according to patient size. COMPARISON: None. FINDINGS: Image quality: Excellent. Lungs and pleura: No acute air space opacities. No pleural effusions or pneumothorax. Central and peripheral airways are patent and normal in caliber. Mediastinum: Heart size is normal. No pericardial effusion. No mediastinal or hilar adenopathy by size criteria. Thoracic aorta and central pulmonary arteries are normal in size. Esophagus is estefanía l in caliber. No hiatal hernia. Bones and chest wall: No suspicious bony lesions. No vertebral body compression fractures. No axil sushil or supraclavicular adenopathy by size criteria. The thyroid is normal in size and there are no incidental findings.. Abdomen: Visualized upper abdominal solid organs appear normal. Upper abdominal bowel loops are nor mal in caliber. IMPRESSION: No acute traumatic injury. Reviewed by: Velma Diaz MD, PhD on 09/02/2021 5:56 PM PDT Approved by: Velma Diaz MD, PhD on 09/02/2021 5:56 PM PDT Station ID: [id number]
[2021-09-02 18:06] VITALS: BP 95/58
== END 2021-09-02 18:06 | disposition home or self-care (01) ==
LOC: EDUNIT# → ED 14:32
DX: N30.01 Acute cystitis with hematuria (principal); K59.00 Constipation, unspecified
CPT/HCPCS: 71260; 74177; 81001; 81025; 87086; 96374; 99284; A9270; Q9967; 81003

== ENCOUNTER 2023-11-04 09:51 | Outpatient (CLI) | payer OTHER, MEDICAID ==
--- NOTE | 2023-11-04 17:23 | XRAY Report ---
PROCEDURE: Lumbar Spine 2-3V INDICATIONS: LUMBAR PAIN TECHNIQUE: 2 views of the lumbar spine were acquired. COMPARISON: Lumbar spine radiograph on June 29, 2018. FINDINGS: Surgical change: None. Bones: 5 [id number] vertebrae are present. There is normal bony alignment. No vertebral body co mpression fractures. No suspicious bony lesions. Vertebral body height and disc spaces are maintaine d. Soft tissues: Nonobstructive bowel gas pattern. No suspicious soft tissue calcifications. Above-ave rage colonic stool burden. IMPRESSION: 1.No acute fracture or traumatic subluxation. No significant degenerative changes. 2.Above-average colonic stool burden which may correlate with constipation. Reviewed by: Miri Rai MD on 11/04/2023 5:22 PM PDT Approved by: Miri Rai MD on 11/04/2023 5:22 PM PDT Station ID: [id number]
== END 2023-11-04 09:52 | disposition home or self-care (01) ==
LOC: DI 09:51
PROVIDERS: ATTEND Internal Medicine Cardiovascular Disease
DX: M54.50 Low back pain, unspecified (principal)